=== PATIENT | female | born 1930 | race Caucasian/White ===

== ENCOUNTER → 2016-11-20 | Outpatient (CLI) | payer OTHER, BC ==
[~2016-11-20] MED LIST: ACET-1311 PO; ASPI-461 PO; BISA10SU3 PR; CITA20TA9 PO; CLR10 PO; CNT PO; DICL1GEL12 TOP; DOCU-94 PO; DOCU100C PO; ESCI10TA17 PO; FELO5TAB PO; FEXO3TAB PO; FNTTP25 TOP; HYDR-4079 PO; HYDR-5688 PO; LPR25 PO; LXT PO; MELA3TAB PO; MOML PO; MULT-506 PO; NUTR-977 PO; OXYB5TAB21 PO; POLY335019 PO; SODIENE PR; TPRSR/25 PO; TPRSR50 PO; ZNT150 PO
[2016-11-20 09:15] LABS: HEMATOCRIT 44.9 % (37-47); MEAN CELL VOLUME 93.3 fL (80-100); MEAN CORPUSCULAR HGB CONC 33.2 g/dl (32-36); MEAN PLATELET VOLUME 9.2 fL (7.4-10.4); PLATELET COUNT 231 K/uL (130-400); RED BLOOD COUNT 4.81 M/uL (4.2-5.4); WHITE BLOOD COUNT 7.99 K/uL (4.8-10.8)
[2016-11-20 09:23] LABS: BLOOD UREA NITROGEN 23 mg/dl (7-18); BUN/CREATININE RATIO 25.7 (10-20); CALCIUM 8.8 mg/dl (8.5-10.1); CARBON DIOXIDE 27 mmol/L (21-32); CHLORIDE 106 mmol/L (98-107); CREATININE 0.88 mg/dl (0.60-1.20); GLUCOSE 80 mg/dl (70-99); POTASSIUM 3.6 mmol/L (3.5-5.1); SODIUM 143 mmol/L (136-145)
== END ==
LOC: C.LABUPNIT 08:45
PROVIDERS: ATTEND Family Medicine
DX: I10 Essential (primary) hypertension (principal); M81.0 Age-related osteoporosis without current pathological fracture

== ENCOUNTER 2017-01-10 15:34 | Inpatient (IN) | payer OTHER, BC ==
[~2017-01-10] VITALS: Ht 157.5 cm; Wt 90.0 kg
[~2017-01-10 15:34] MED LIST changes: -ACET-1311 PO; -ASPI-461 PO; -BISA10SU3 PR; -CITA20TA9 PO; -CLR10 PO; -DICL1GEL12 TOP; -DOCU-94 PO; -FELO5TAB PO; -FEXO3TAB PO; -FNTTP25 TOP; -HYDR-5688 PO; -MELA3TAB PO; -MOML PO; -MULT-506 PO; -OXYB5TAB21 PO; -POLY335019 PO; -SODIENE PR; -TPRSR/25 PO; -TPRSR50 PO; -ZNT150 PO
[2017-01-10] MEDS ORDERED: SODIUM CHLORIDE 0.9% 500ML 500 ML IV STA (16:19)
[2017-01-10] MEDS ORDERED: ONDANSETRON INJ 2 MG/ML 2 ML VIAL IV STA (16:19)
--- NOTE | 2017-01-10 16:27 | EMERGENCY ROOM VISIT NOTE ---
History Report prepared by Garima: Gilson Fall Under the Supervision of: Dr. Itz Bryan D.O. First contact with patient: 16:12 Chief Complaint: ABDOMINAL PAIN Stated Complaint: AB PAIN Nursing Triage Summary: Pt arrives from [facility] by BLS for c/o RUQ abd pain. Tender upon palapation. Per staff ongoing for the last 1-2 days. Emesis x3 yesterday with episode of projectile vomiting after eating. Pt also reports vomiting after breakfast today. "I just don't have anything in there". Pt awake, alert and oriented. Hx of Dementia, Cholycystectomy History of Present Illness The patient is an 86 year old female who presents to the Emergency Room with complaints of persistent vomiting that started yesterday. The patient notes that she was vomiting after every meal yesterday and had another episode after breakfast today. Per nursing staff, the patient also complains of right upper quadrant discomfort. The HPI is limited due to dementia. Source of History: patient, [facility] notes History Limited By: dementia Onset: yesterday Position: abdomen Timing: other (persistent) Associated Symptoms: + abdominal pain (RUQ discomfort) Review of Systems The ROS is limited due to dementia. Past Medical & Surgical Medical Problems: (1) Abdominal pain (2) DJD (degenerative joint disease) (3) left hip prothesis Family History No pertinent family history Social History Smoking Status: Never Smoker Marital Status: Housing Status: assisted living Occupation Status: retired Current/Historical Medications Scheduled Aspirin (Aspirin), 81 MG PO DAILY Citalopram Hydrobromide (Celexa), 20 MG PO DAILY Diclofenac Sodium (Topical) (Voltaren 1% Top Gel), 4 GM TOP TID Docusate Sodium (Colace), 100 MG PO Q2D Felodipine (Plendil Er), 5 MG PO DAILY Fexofenadine HCl (Mucinex Allergy), 600 MG PO DAILY Melatonin (Melatonin), 3 MG PO HS Metoprolol Succinate (Metoprolol Succinate ER), 25 MG PO DAILY Oxybutynin Chloride (Ditropan Xl), 5 MG PO DAILY Polyethylene Glycol 3350 (Miralax), 17 GM PO DAILY Scheduled PRN Acetaminophen (Tylenol), 650 MG PO Q6H PRN for Pain or Fever Bisacodyl (Dulcolax), 1 SUPP [place] UD PRN for Constipation Hydrocodone/Acetaminophen 10MG/325MG ([place] 10MG/325MG), 1 TAB PO BID PRN for Pain Hydrocodone/Acetaminophen 5MG/325MG ([place] 5MG/325MG), 1 TAB PO Q6H PRN for Pain Magnesium Hydroxide (Milk Of Magnesia), 30 ML PO UD PRN for Constipation Sodium Phosphate/Biphosphate (Fleet Enema), 1 EA [place] UD PRN for Constipation Allergies Coded Allergies: Sulfamethoxazole w/Trimethoprim (Verified Allergy, Unknown, throat tightness, 08/16/15) Physical Exam Vital Signs Date Time Temp Pulse Resp B/P Pulse Ox O2 Delivery O2 Flow Rate FiO2 01/10/17 18:42 81 22 113/63 93 Room Air 01/10/17 16:52 76 22 116/70 92 Room Air 01/10/17 15:49 79 01/10/17 15:43 36.7 88 24 130/86 92 Room Air Physical Exam GENERAL: Patient is awake alert, mildly anxious appearing but comfortable. EYES: The conjunctivae are clear. The pupils were constricted and minimally reactive to light. EARS, NOSE, MOUTH AND THROAT: The nose is without any evidence of any deformity. Mucous membranes are dry bilaterally. tongue is midline NECK: The neck is nontender and supple. RESPIRATORY: Diminished at base bilaterally. Rales at both bases. CARDIOVASCULAR: Regular rate and rhythm noted there no murmurs rubs or gallops normal S1 normal S2 GASTROINTESTINAL: Moderately distended and diffusely tender. RUQ tenderness to palpation which is moderate. MUSCULOSKELETAL/EXTREMITIES: There is no evidence of gross deformity full range of motion is noted in the hips and shoulders SKIN: There is no obvious evidence of any rash. There are no petechiae, pallor or cyanosis noted. Pedal edema bilaterally. NEUROLOGIC: Patient is awake alert and oriented x3 Medical Decision & Procedures ER Provider Diagnostic Interpretation: Radiology results as stated below per my review and radiologist interpretation: CHEST ONE VIEW PORTABLE CLINICAL HISTORY: Abdominal pain. COMPARISON STUDY: Chest radiograph August 16, 2015. FINDINGS: Lung volumes are diminished. Multilevel vertebral augmentations are incidentally noted as well as chronic deformity of the right humeral head as well as the deformity of the left humeral head. Cardiomegaly is unchanged. There is no evidence of pulmonary edema. No consolidation is identified. The appearance of the chest is unchanged. IMPRESSION: No acute findings. No change in appearance of the chest. Electronically signed by: Huseyin James M.D. 01/10/2017 4:53 PM Dictated Date/Time: 01/10/2017 4:[address] OF THE ABDOMEN AND PELVIS WITHOUT CONTRAST CLINICAL HISTORY: Upper abdominal pain and vomiting. COMPARISON STUDY: CT of the abdomen and pelvis September 30, 2016. TECHNIQUE: Axial images of the abdomen and pelvis were obtained without IV contrast. Images were reviewed in the axial, sagittal, and coronal planes. FINDINGS: The heart is mildly enlarged. Evaluation of the abdomen and pelvis is suboptimal given the lack of IV and oral contrast. Mild dilatation of the common bile duct is unchanged since prior exam and likely due to cholecystectomy. Unenhanced images of liver, spleen, adrenal glands and kidneys are unremarkable with exception of several subcentimeter hyperdense and water attenuation renal lesions. These are suboptimally assessed on this unenhanced exam although likely reflect simple cysts and hyperdense cysts, as shown on prior contrast enhanced CT. Note is made of a 2 mm is within the lower pole of the left kidney. No ureteral calculi are identified. There is no hydronephrosis. There is a moderate amount of stool within the rectum. Images of the pelvis are compromised by streak artifact from a left hip arthroplasty. There are multilevel vertebral augmentations within the lumbar spine. No pneumatosis, free air or portal venous gas is present. The appendix is normal. IMPRESSION: 1. No acute process within the abdomen or pelvis on unenhanced exam. 2. Moderate amount of stool within the rectum. No bowel obstruction. 3. Punctate left renal calculus. No ureteral calculi or hydronephrosis. Electronically signed by: Huseyin James M.D. 01/10/2017 5:50 PM Dictated Date/Time: 01/10/2017 5:42 PM Laboratory Results 01/10/17 16:45 Red Blood Count 4.74, Mean Corpuscular Volume 92.2, Mean Corpuscular Hemoglobin 32.1, Mean Corpuscular Hemoglobin Concent 34.8, Mean Platelet Volume 9.1, Neutrophils (%) (Auto) 59.4, Lymphocytes (%) (Auto) 19.1, Monocytes (%) (Auto) 14.2, Eosinophils (%) (Auto) 6.8, Basophils (%) (Auto) 0.3, Neutrophils # (Auto ) 3.92, Lymphocytes # (Auto) 1.26, Monocytes # (Auto) 0.94, Eosinophils # (Auto ) 0.45, Basophils # (Auto) 0.02 01/10/17 16:45 Test 01/10/17 16:45 White Blood Count 6.60 K/uL (4.8-10.8) Red Blood Count 4.74 M/uL (4.2-5.4) Hemoglobin 15.2 g/dL (12.0-16.0) Hematocrit 43.7 % (37-47) Mean Corpuscular Volume 92.2 fL (80-100) Mean Corpuscular Hemoglobin 32.1 pg (25-34) Mean Corpuscular Hemoglobin Concent 34.8 g/dl (32-36) Platelet Count 239 K/uL (130-400) Mean Platelet Volume 9.1 fL (7.4-10.4) Neutrophils (%) (Auto) 59.4 % Lymphocytes (%) (Auto) 19.1 % Monocytes (%) (Auto) 14.2 % Eosinophils (%) (Auto) 6.8 % Basophils (%) (Auto) 0.3 % Neutrophils # (Auto) 3.92 K/uL (1.4-6.5) Lymphocytes # (Auto) 1.26 K/uL (1.2-3.4) Monocytes # (Auto) 0.94 K/uL (0.11-0.59) Eosinophils # (Auto) 0.45 K/uL (0-0.5) Basophils # (Auto) 0.02 K/uL (0-0.2) RDW Standard Deviation 46.2 fL (36.4-46.3) RDW Coefficient of Variation 13.6 % (11.5-14.5) Immature Granulocyte % (Auto) 0.2 % Immature Granulocyte # (Auto) 0.01 K/uL (0.00-0.02) Prothrombin Time 11.4 SECONDS (9.0-12.0) Prothromb Time International Ratio 1.1 (0.9-1.1) Activated Partial Thromboplast Time 27.8 SECONDS (21.0-31.0) Partial Thromboplastin Ratio 1.1 Anion Gap 7.0 mmol/L (3-11) Est Creatinine Clear Calc Drug Dose 50.6 ml/min Estimated GFR () 75.2 Estimated GFR (Non- 64.8 BUN/Creatinine Ratio 31.2 (10-20) Calcium Level 7.8 mg/dl (8.5-10.1) Total Bilirubin 0.6 mg/dl (0.2-1) Direct Bilirubin 0.1 mg/dl (0-0.2) Aspartate Amino Transf (AST/SGOT) 17 U/L (15-37) Alanine Aminotransferase (ALT/SGPT) 17 U/L (12-78) Alkaline Phosphatase 90 U/L (45-117) Total Creatine Kinase 57 U/L (26-192) Creatine Kinase MB 2.9 ng/ml (0.5-3.6) Creatine Kinase MB Ratio 5.1 (0-3.0) Troponin I 0.020 ng/ml (0-0.045) Total Protein 7.2 gm/dl (6.4-8.2) Albumin 3.0 gm/dl (3.4-5.0) Lipase 58 U/L (73-393) Laboratory results per my review. Medications Administered Medications (Trade) Dose Ordered Sig/Tiffanie Route Start Time Stop Time Status Last Admin Dose Admin Ondansetron HCl 4 mg 4 mg NOW STAT IV 01/10/17 16:19 01/10/17 16:21 DC 01/10/17 16:51 4 MG Sodium Chloride (Nss 500ml) 500 ml @ 999 mls/hr Q31M STAT IV 01/10/17 16:19 01/10/17 16:49 DC 01/10/17 16:50 999 MLS/HR ECG Indication: abdominal pain Rate (beats per minute): 90 Rhythm: sinus rhythm Findings: 1st degree AV block, other (no PVCs & diffuse t-wave flattening) Comparison ECG Date: no prior available Change: no significant change (when compared to EKG from August 20, 2015) ED Course 1611: The patient was evaluated in room C2. A complete history and physical examination were performed. 1618: Ordered NSS 500 ml @ 999 mls/hr IV, Zofran Inj 4 mg IV. 1814: At this time, I reevaluated the patient and discussed the test results with her daughter. Her daughter does not want the patient to go back to [facility] right now. 1904: At this time, I discussed the patient's case with Dr. Martinez - Hospitalist [facility] and he agreed to accept the patient for further evaluation. Medical Decision Differential diagnosis: Etiologies such as gastroenteritis, food borne illness, infections, appendicitis , diverticulitis, inflammatory bowel disease, obstruction, GI bleed, biliary pathology, as well as others were entertained. Nursing notes reviewed. Additional history is obtained from the patient's daughter. The patient is an 86-year-old female who presented to the emergency department for an evaluation of nausea and vomiting. The patient has had chronic right upper quadrant abdominal pain which is been ongoing for quite some time. No definite cause is been found. She presented today from the [facility] because of ongoing nausea and vomiting and the fear that she may be dehydrated. The patient was treated with IV fluids and IV antiemetics in the emergency department. On subsequent reevaluation she was feeling much better. I discussed her laboratory and radiographic studies with her and her daughter. Her daughter was concerned because of her ongoing symptoms and asked me to discuss this case with the on-call [facility] hospitalist group. They have agreed to evaluate the patient in the emergency department for further management and disposition. Consults Time Called: [id number] Consulting Physician: Dr. Martinez - Kyle [facility] [place] Returned Call: 1904 At this time, I discussed the patient's case with Dr. Martinez and he agreed to accept the patient for further evaluation. Impression Primary Impression: Nausea Additional Impressions: Vomiting RUQ abdominal pain Scribe Attestation The scribe's documentation has been prepared under my direction and personally reviewed by me in its entirety. I confirm that the note above accurately reflects all work, treatment, procedures, and medical decision making performed by me. Departure Information Dispostion Being Evaluated By Hospitalist Referrals Bennie Rust (PCP) Problem Qualifiers Additional Impressions: Vomiting Vomiting type: unspecified Vomiting Intractability: non-intractable Nausea presence: with nausea Qualified Codes: R11.2 - Nausea with vomiting, unspecified
[2017-01-10] MEDS ORDERED: CITA20TA9 PO (16:53)
[2017-01-10] MEDS ORDERED: DOCU-94 PO (16:53)
[2017-01-10] MEDS ORDERED: ASPI-461 PO (16:53)
--- NOTE | 2017-01-10 16:55 | DIAGNOSTIC IMAGING REPORT ---
CHEST ONE VIEW PORTABLE CLINICAL HISTORY: Abdominal pain. COMPARISON STUDY: Chest radiograph August 16, 2015. FINDINGS: Lung volumes are diminished. Multilevel vertebral augmentations are incidentally noted as well as chronic deformity of the right humeral head as well as the deformity of the left humeral head. Cardiomegaly is unchanged. There is no evidence of pulmonary edema. No consolidation is identified. The appearance of the chest is unchanged. IMPRESSION: No acute findings. No change in appearance of the chest. Electronically signed by: Huseyin James M.D. 01/10/2017 4:53 PM Dictated Date/Time: 01/10/2017 4:52 PM
[2017-01-10] MEDS ORDERED: POLY335019 PO (17:00)
[2017-01-10] MEDS ORDERED: MELA3TAB PO (17:00)
[2017-01-10] MEDS ORDERED: OXYB5TAB21 PO (17:00)
[2017-01-10] MEDS ORDERED: TPRSR/25 PO (17:00)
[2017-01-10] MEDS ORDERED: FELO5TAB PO (17:00)
[2017-01-10 17:02] LABS: BASO % 0.3 %; BASO ABS # 0.02 K/uL (0-0.2); COMPLETE YES; EOS % 6.8 %; HEMATOCRIT 43.7 % (37-47); IG% 0.2 %; LYMPH % 19.1 %; LYMPH ABS # 1.26 K/uL (1.2-3.4); MEAN CELL VOLUME 92.2 fL (80-100); MEAN CORPUSCULAR HEMOGLOBIN 32.1 pg (25-34); MEAN CORPUSCULAR HGB CONC 34.8 g/dl (32-36); MEAN PLATELET VOLUME 9.1 fL (7.4-10.4); MONO % 14.2 %; NEUT % 59.4 %; PLATELET COUNT 239 K/uL (130-400); RED BLOOD COUNT 4.74 M/uL (4.2-5.4)
[2017-01-10] MEDS ORDERED: FEXO3TAB PO (17:08)
[2017-01-10 17:10] LABS: INR 1.1 (0.9-1.1); PARTIAL THROMBOPLASTIN RATIO 1.1; PROTHROMBIN TIME (PATIENT) 11.4 SECONDS (9.0-12.0)
[2017-01-10] MEDS ORDERED: DICL1GEL12 TOP (17:17)
[2017-01-10 17:20] LABS: BUN/CREATININE RATIO 31.2 (10-20); CALCIUM 7.8 mg/dl (8.5-10.1); CREATININE 0.81 mg/dl (0.60-1.20); POTASSIUM 3.1 mmol/L (3.5-5.1)
[2017-01-10 17:25] LABS: CKMB/CK RATIO 5.1 (0-3.0)
[2017-01-10] MEDS ORDERED: SODIENE PR (17:27)
[2017-01-10] MEDS ORDERED: HYDR-5688 PO (17:27)
[2017-01-10] MEDS ORDERED: BISA10SU3 PR (17:27)
[2017-01-10] MEDS ORDERED: MOML PO (17:27)
[2017-01-10] MEDS ORDERED: ACET-1311 PO (17:27)
--- NOTE | 2017-01-10 17:51 | DIAGNOSTIC IMAGING REPORT ---
CT OF THE ABDOMEN AND PELVIS WITHOUT CONTRAST CLINICAL HISTORY: Upper abdominal pain and vomiting. COMPARISON STUDY: CT of the abdomen and pelvis September 30, 2016. TECHNIQUE: Axial images of the abdomen and pelvis were obtained without IV contrast. Images were reviewed in the axial, sagittal, and coronal planes. FINDINGS: The heart is mildly enlarged. Evaluation of the abdomen and pelvis is suboptimal given the lack of IV and oral contrast. Mild dilatation of the common bile duct is unchanged since prior exam and likely due to cholecystectomy. Unenhanced images of liver, spleen, adrenal glands and kidneys are unremarkable with exception of several subcentimeter hyperdense and water attenuation renal lesions. These are suboptimally assessed on this unenhanced exam although likely reflect simple cysts and hyperdense cysts, as shown on prior contrast enhanced CT. Note is made of a 2 mm is within the lower pole of the left kidney. No ureteral calculi are identified. There is no hydronephrosis. There is a moderate amount of stool within the rectum. Images of the pelvis are compromised by streak artifact from a left hip arthroplasty. There are multilevel vertebral augmentations within the lumbar spine. No pneumatosis, free air or portal venous gas is present. The appendix is normal. IMPRESSION: 1. No acute process within the abdomen or pelvis on unenhanced exam. 2. Moderate amount of stool within the rectum. No bowel obstruction. 3. Punctate left renal calculus. No ureteral calculi or hydronephrosis. Electronically signed by: Huseyin James M.D. 01/10/2017 5:50 PM Dictated Date/Time: 01/10/2017 5:42 PM
[2017-01-10] MEDS ORDERED: ALUMINUM/MAGNESIUM/SIMETH (MAALOX MAX) 30 ML UDC PO PRN (19:15)
[2017-01-10] MEDS ORDERED: POLYETHYLENE (MIRALAX) 17 GM PACK PO PRN ×2 (19:15→20:30)
[2017-01-10] MEDS ORDERED: MAGNESIUM HYDROXIDE SUSP 30 ML UDC PO PRN ×2 (19:15→20:30)
[2017-01-10] MEDS ORDERED: ONDANSETRON INJ 2 MG/ML 2 ML VIAL IV PRN (19:15)
[2017-01-10] MEDS ORDERED: ACETAMINOPHEN 325 MG TAB PO PRN ×2 (19:15→20:30)
[2017-01-10] MEDS ORDERED: IV FLUIDS COMPLETED PRN (19:45)
[2017-01-10] MEDS ORDERED: SOD PHOSPHATE/SOD BIPHOSPHATE ENEMA 132 ML BTL PR STA (20:23)
[2017-01-10] MEDS ORDERED: POLYETHYLENE (MIRALAX) 17 GM PACK PO ONE (20:23)
[2017-01-10] MEDS ORDERED: POTASSIUM CHLORIDE 10 MEQ TABCR PO STA (20:23)
[2017-01-10] MEDS ORDERED: HYDROCODONE/ACETAMOPHEN 5/325MG TAB PO PRN (20:30)
[2017-01-10] MEDS ORDERED: SOD PHOSPHATE/SOD BIPHOSPHATE ENEMA 132 ML BTL PR PRN (20:30)
[2017-01-10] MEDS ORDERED: BISACODYL 10 MG SUPP PR PRN (20:30)
[2017-01-10] MEDS ORDERED: HYDROCODONE/ACETAMI 10/325 TAB PO PRN (20:30)
[2017-01-10 20:45] VITALS: BP 104/70; PULSE 76; TEMP 37; Ht 157.5 cm; Wt 90.0 kg
[2017-01-10 20:57] VITALS: BP 104/70; PULSE 76; TEMP 37; O2SAT 92
[2017-01-10] MEDS ORDERED: NON-FORMULARY MEDICATION (Melatonin 3 MG) PO SCH (21:00)
[2017-01-10] MEDS ORDERED: FENTANYL PATCH REMOVE & WASTE SCH (21:29)
[2017-01-10] MEDS ORDERED: POTASSIUM CHLORIDE 10 MEQ TABCR PO ONE (21:30)
--- NOTE | 2017-01-10 22:19 | History and Physical ---
History & Physical Date & Time of Service: Jan 10, 2017 at 22:10 Chief Complaint: Abdominal Pain Primary Care Physician: Bennie Rust Past Medical/Surgical History Medical Problems: (1) DJD (degenerative joint disease) Status: Chronic (2) left hip prothesis Status: Chronic Family History No pertinent family history Social History Smoking Status: Never Smoker Marital Status: Occupational Status: retired Allergies Coded Allergies: Sulfamethoxazole w/Trimethoprim (Verified Allergy, Unknown, throat tightness, 08/16/15) Home Medications Scheduled Aspirin (Aspirin), 81 MG PO DAILY Citalopram Hydrobromide (Celexa), 20 MG PO DAILY Diclofenac Sodium (Topical) (Voltaren 1% Top Gel), 4 GM TOP TID Docusate Sodium (Colace), 100 MG PO Q2D Felodipine (Plendil Er), 5 MG PO DAILY Fexofenadine HCl (Mucinex Allergy), 600 MG PO DAILY Melatonin (Melatonin), 3 MG PO HS Metoprolol Succinate (Metoprolol Succinate ER), 25 MG PO DAILY Oxybutynin Chloride (Ditropan Xl), 5 MG PO DAILY Polyethylene Glycol 3350 (Miralax), 17 GM PO DAILY Scheduled PRN Acetaminophen (Tylenol), 650 MG PO Q6H PRN for Pain or Fever Bisacodyl (Dulcolax), 1 SUPP [place] UD PRN for Constipation Hydrocodone/Acetaminophen 10MG/325MG ([place] 10MG/325MG), 1 TAB PO BID PRN for Pain Hydrocodone/Acetaminophen 5MG/325MG ([place] 5MG/325MG), 1 TAB PO Q6H PRN for Pain Magnesium Hydroxide (Milk Of Magnesia), 30 ML PO UD PRN for Constipation Sodium Phosphate/Biphosphate (Fleet Enema), 1 EA [place] UD PRN for Constipation Physical Exam Vital Signs Date Time Temp Pulse Resp B/P Pulse Ox O2 Delivery O2 Flow Rate FiO2 01/10/17 20:57 37.0 76 19 104/70 92 Nasal Cannula 2.0 01/10/17 20:45 37.0 76 16 104/70 Nasal Cannula 2.0 92 01/10/17 20:16 85 20 122/87 96 Nasal Cannula 2.0 01/10/17 18:42 81 22 113/63 93 Room Air 01/10/17 16:52 76 22 116/70 92 Room Air 01/10/17 15:49 79 01/10/17 15:43 36.7 88 24 130/86 92 Room Air Diagnostics Laboratory Results Results Past 24 Hours Test 01/10/17 16:45 Range/Units White Blood Count 6.60 4.8-10.8 K/uL Red Blood Count 4.74 4.2-5.4 M/uL Hemoglobin 15.2 12.0-16.0 g/dL Hematocrit 43.7 37-47 % Mean Corpuscular Volume 92.2 80-100 fL Mean Corpuscular Hemoglobin 32.1 25-34 pg Mean Corpuscular Hemoglobin Concent 34.8 32-36 g/dl Platelet Count 239 130-400 K/uL Mean Platelet Volume 9.1 7.4-10.4 fL Neutrophils (%) (Auto) 59.4 % Lymphocytes (%) (Auto) 19.1 % Monocytes (%) (Auto) 14.2 % Eosinophils (%) (Auto) 6.8 % Basophils (%) (Auto) 0.3 % Neutrophils # (Auto) 3.92 1.4-6.5 K/uL Lymphocytes # (Auto) 1.26 1.2-3.4 K/uL Monocytes # (Auto) 0.94 0.11-0.59 K/uL Eosinophils # (Auto) 0.45 0-0.5 K/uL Basophils # (Auto) 0.02 0-0.2 K/uL RDW Standard Deviation 46.2 36.4-46.3 fL RDW Coefficient of Variation 13.6 11.5-14.5 % Immature Granulocyte % (Auto) 0.2 % Immature Granulocyte # (Auto) 0.01 0.00-0.02 K/uL Prothrombin Time 11.4 9.0-12.0 SECONDS Prothromb Time International Ratio 1.1 0.9-1.1 Activated Partial Thromboplast Time 27.8 21.0-31.0 SECONDS Partial Thromboplastin Ratio 1.1 Sodium Level 139 136-145 mmol/L Potassium Level 3.1 3.5-5.1 mmol/L Chloride Level 103 98-107 mmol/L Carbon Dioxide Level 29 21-32 mmol/L Anion Gap 7.0 3-11 mmol/L Blood Urea Nitrogen 25 7-18 mg/dl Creatinine 0.81 0.60-1.20 mg/dl Est Creatinine Clear Calc Drug Dose 50.6 ml/min Estimated GFR () 75.2 Estimated GFR (Non- 64.8 BUN/Creatinine Ratio 31.2 10-20 Random Glucose 103 70-99 mg/dl Calcium Level 7.8 8.5-10.1 mg/dl Total Bilirubin 0.6 0.2-1 mg/dl Direct Bilirubin 0.1 0-0.2 mg/dl Aspartate Amino Transf (AST/SGOT) 17 15-37 U/L Alanine Aminotransferase (ALT/SGPT) 17 12-78 U/L Alkaline Phosphatase 90 45-117 U/L Total Creatine Kinase 57 26-192 U/L Creatine Kinase MB 2.9 0.5-3.6 ng/ml Creatine Kinase MB Ratio 5.1 0-3.0 Troponin I 0.020 0-0.045 ng/ml Total Protein 7.2 6.4-8.2 gm/dl Albumin 3.0 3.4-5.0 gm/dl Lipase 58 73-393 U/L Impression Assessment and Plan admit #[id number] Advanced Directives Existing Living Will: No Existing Power of Senior Enlisted Advisor: No VTE Prophylaxis VTE Risk Assessment Done? Y/N: Yes Risk Level: Moderate
[2017-01-10] MEDS: POLYETHYLENE (MIRALAX) 17 GM PACK PO SCH (22:27)
[2017-01-10] MEDS: DICLOFENAC SOD 1% GEL 100 GM TUBE EXT SCH (22:32)
[2017-01-10] MEDS: SENNA 8.6 MG TAB PO SCH (22:33)
[2017-01-10] MEDS: ENOXAPARIN 40 MG/0.4 ML SYR SQ SCH (22:50)
[2017-01-10] MEDS: FENTANYL 25 MCG/HR TDSY TD SCH (22:50)
[2017-01-10 23:09] VITALS: BP 125/81; PULSE 73; TEMP 36.5; O2SAT 94
--- NOTE | 2017-01-10 23:46 | HISTORY & PHYSICAL EXAMINATION ---
DATE OF ADMISSION: 01/10/2017 CHIEF COMPLAINT: Abdominal pain and vomiting. HISTORY OF PRESENT ILLNESS: The patient is an 86-year-old female well known to me from [facility] who presents after 2 days of vomiting, some of which was projectile. She has been unable to eat or drink very well over the last 2 days. She notes that her abdomen started getting more distended. She has had less and less bowel movements and then she started vomiting and she has not really been able to take anything p.o. since. She has not had diarrhea, in fact she has not really had much of any bowel movements and she had no preceding fevers, chills, or sweats. REVIEW OF SYSTEMS: Otherwise entirely negative except for as above. PAST MEDICAL HISTORY: Includes hypertension, anxiety, depression, overactive bladder, venous insufficiency, osteoarthritis, osteoporosis, unspecified congestive heart failure and chronic constipation appearing due to her pain medications. PAST SURGICAL HISTORY: Includes left total hip arthroplasty, prior knee fracture. SOCIAL HISTORY: No tobacco, no alcohol. She lives at [facility]. ALLERGIES: BACTRIM. FAMILY HISTORY: None of note. MEDICATIONS: Her current meds are Tylenol 650 q. 6 p.r.n., aspirin 81 mg daily, Dulcolax rectally p.r.n. constipation, Celexa 20 mg daily, Voltaren gel topical t.i.d., Colace 100 mg every other day, Plendil 5 mg daily, Mucinex 600 mg daily, Cosby 10/325 b.i.d. p.r.n. and 5/325 q. 6 p.r.n., milk of magnesia 30 mL p.r.n. constipation, melatonin 3 mg at bedtime, metoprolol 25 mg daily, Ditropan XL 5 mg daily, MiraLax 17 g daily which I believe she frequently refuses, Fleet Enema p.r.n. refractory constipation. PHYSICAL EXAMINATION: VITAL SIGNS: Temperature 36.7, pulse 88, respiratory rate 24, blood pressure 130/86, 92% on room air. GENERAL: She is awake, alert, oriented x3, pleasant and in no acute distress. HEENT: Normocephalic, atraumatic. Mucous membranes are moist. She is quite hard of hearing but if you shout at her, she is able to understand and converse fairly well. CARDIOVASCULAR: Regular without rubs, murmurs, or gallops. LUNGS: Clear to auscultation bilaterally. No rales, rhonchi, or wheezes with good effort. ABDOMEN: Soft, moderately distended, slightly tympanitic in her upper abdomen and more firm but not guarding, rebound or rigidity in her lower abdomen, mildly tender throughout. EXTREMITIES: Without cyanosis, clubbing or edema. NEUROLOGIC: Shows cranial nerves II-XII to be grossly intact. Gross motor and sensory are intact with the exception of hardness of hearing as above noted. MUSCULOSKELETAL: Shows diffuse arthritic changes, but no other gross lesions. MENTAL STATE: Shows good recent and remote recall. Normal mood and affect. Fair judgment and insight. LABS AND DIAGNOSTICS: CBC shows a white count of 6.6 with a hemoglobin 15.2, platelets 239. Complete metabolic panel with sodium 139, potassium 3.1, chloride 103, CO2 29, BUN 25, creatinine 0.81, calcium 7.8, glucose 103, total bili 0.6 with a direct of 0.1, AST 17, ALT 17, alk phos 90, CK total 57 with an MB of 2.9. Troponin of 0.020. Total protein 7.2, albumin 3, lipase 58. PT of 11.4, PTT 27.8. Chest x-ray shows lung volumes diminished, multilevel vertebral augmentations noted as well as chronic deformity of the right humeral head and left humeral head, cardiomegaly unchanged from about a year and half ago. No evidence of pulmonary edema, no consolidation. CT abdomen and pelvis shows heart mildly enlarged. Evaluation of abdomen and pelvis suboptimal due to lack of IV and oral contrast, mild dilation of common bile duct, unchanged since prior exam and likely due to cholecystectomy. Images of liver, spleen, adrenal glands and kidneys are unremarkable with the exception of several subcentimeter hyperdense water attenuation renal lesions, suboptimally assessed on this exam, although likely reflect simple and hyperdense cysts as seen on prior contrast CT. There is a 2 mm lower pole of left kidney. No ureteral calculi. Hydronephrosis is not present. Moderate amount of stool in the rectum. Images of the pelvis are compromised by streak artifact from a left hip arthroplasty, multilevel vertebral augmentations in the lumbar spine, no pneumatosis, free air or portal venous gas. To my review, I definitely see the stool in the rectum. It appears to go up to about the sigmoid colon at about the splenic flexure and while it is certainly not an obstruction or severe degree of gaseous distention prior to the stool, there does appear to be a reasonable amount of bowel gas and distention across the transverse colon. ASSESSMENT AND PLAN: 1. Nausea and vomiting. My initial differential would have been viral versus constipation related, knowing her history and knowing it is prevalent in the community. Given that she is not really showing any signs or symptoms of a viral illness and she does show a physical exam and CT quite consistent with constipation, I suspect this is the etiology of her nausea and vomiting. 2. Constipation. This is chronic, related to her pain meds. I have been working with her throughout the last year to try to refine her pain meds and bowel regimen. The first that I saw her in this respect was March 18. In general, she refuses any regimen she does not like. She tries to essentially dictate her own care and in spite of my best efforts, she continues to only want to take p.r.n. meds for pain without any basal pain regimen and generally does not allow us to keep on top of a bowel regimen. At this point in time it appears we will need to proceed with an enema to alleviate the lower colon fecal stasis and then proceed with MiraLax to try to keep her bowels moving as well as senna, probably with senna 17.4 at bedtime, MiraLax probably b.i.d. with an additional dose or 2 doses throughout the day p.r.n. refractory constipation and I suspect once we get her bowels moving, she will be able to eat and drink and her nausea and vomiting will resolve. 3. Chronic pain. This is mostly a diffuse degenerative joint disease related osteoarthritis pain. With her age and hypertension, certainly I harbor some serious concerns about a chronic NSAID regimen causing stomach, renal or vascular issues. Tylenol is not doing well enough, nor is Voltaren gel topically. So I do agree with her that given that she really cannot get up and walk without a degree of pain control, that narcotic regimen is probably the least dangerous, however I discussed with her that she needs to allow me to try to revamp her pain regimen to more of a basal bolus fashion. Hopefully, that will affect her better pain control but also without the on and off type phenomenon, hopefully it will allow the constipation to be easier to manage as well. In the past, she has refused this, she generally talks over and makes assumptions on what we are going to do. She did this a little bit again today, noting that she did not want me to stop her pain medicines whenever I said that I had no such intentions. She also did not want the fentanyl patch, noting that she was afraid that it would be too much pain medicine for her. I discussed the case in detail with her and her daughter and at this point in time, we will reduce her breakthrough meds to Cosby 10/325 t.i.d. p.r.n., add a fentanyl patch 25 mcg change q. 72 hours and titrate the fentanyl patch to where she seems to have adequate pain control with t.i.d. or less pain meds. 4. Essential hypertension. Continue her felodipine and metoprolol. 5. Hypoxia. This is probably atelectasis related to her abdominal pain and distention. Clearing her constipation should help. We will also add incentive spirometer. 6. Hypocalcemia and vitamin D insufficiency, replace D. This should be ongoing after she is discharged. 7. Deep venous thrombosis prophylaxis, Lovenox.
[2017-01-11] MEDS: CHECK FENTANYL PATCH PLACEMENT SCH ×3 (00:58→15:23)
[2017-01-11 08:06] VITALS: BP 130/80; PULSE 72; TEMP 36.7; O2SAT 92
[2017-01-11] MEDS: POLYETHYLENE (MIRALAX) 17 GM PACK PO SCH ×2 (08:37→21:00)
[2017-01-11] MEDS: CITALOPRAM 20 MG TAB PO SCH (08:38)
[2017-01-11] MEDS: OXYBUTYNIN CHLORIDE 5 MG TABCR PO SCH (08:38)
[2017-01-11] MEDS: DICLOFENAC SOD 1% GEL 100 GM TUBE EXT SCH ×3 (08:38→21:14)
[2017-01-11] MEDS: GUAIFENESIN 600 MG TABCR PO SCH (08:39)
[2017-01-11] MEDS: FELODIPINE 5 MG TABCR PO SCH (08:39)
[2017-01-11] MEDS: ASPIRIN 81 MG ECTAB PO SCH (08:39)
[2017-01-11 08:41] VITALS: BP 138/91; PULSE 77
[2017-01-11] MEDS: METOPROLOL SUCC 25MG EXT REL TAB PO SCH (08:43)
[2017-01-11] MEDS ORDERED: HYDROCODONE/ACETAMI 10/325 TAB PO PRN (09:00)
[2017-01-11 09:04] LABS: BUN/CREATININE RATIO 34.9 (10-20); CALCIUM 7.7 mg/dl (8.5-10.1); CREATININE 0.81 mg/dl (0.60-1.20); POTASSIUM 3.4 mmol/L (3.5-5.1)
[2017-01-11] MEDS: CHOLECALCIFEROL 1000 INTER.UNIT TAB PO SCH (09:16)
[2017-01-11 09:43] VITALS: BP 146/90; PULSE 89
--- NOTE | 2017-01-11 10:38 | Progress Note ---
Subjective Date of Service: Jan 11, 2017. Subjective Pt evaluation today including: conversation w/ patient, physical exam, chart review, lab review, review of studies, review of inpatient medication list Patient says she has a pain patch on. Take metamucil for her constipation. No chest pain. Nausea is better. SHe did have breakfast and tolerated it well. She does report to feeling bloated She reports some weakness and feeling winded with some exertion but does not have oxygen at home. Problem List Medical Problems: (1) Nausea Status: Acute (2) RUQ abdominal pain Status: Acute (3) Vomiting Status: Acute Review of Systems All Other Systems: Reviewed and Negative Medications Acetaminophen (Tylenol Tab) 650 mg Q4H PRN PO; Start 01/10/17 at 19:15; Stop 02/09/17 at 19:14 Acetaminophen/ Hydrocodone Bitart ([place] 10/325 Tab) 1 tab TID PRN PO; Start at 09:00; Stop 01/25/17 at 08:59 Al Hydrox/Mg Hydrox/Simethicone (Maalox Max Susp) 15 ml Q4H PRN PO; Start 01/10 at 19:15; Stop 02/09/17 at 19:14 Aspirin (Ecotrin Tab) 81 mg DAILY PO Last administered on 01/11/17 08:39; Admin Dose 81 MG; Start 01/11/17 at 09:00; Stop 02/10/17 at 08:59 Bisacodyl (Dulcolax Supp) 10 mg DAILY PRN SD; Start 01/10/17 at 20:30; Stop at 20:29 Cholecalciferol 2000 inter.unit 2,000 inter.unit QAM PO Last administered on 09:16; Admin Dose 2,000 INTER.UNIT; Start 01/11/17 at 09:00; Stop at 08:59 Citalopram Hydrobromide (celeXA TAB) 20 mg DAILY PO Last administered on 08:38; Admin Dose 20 MG; Start 01/11/17 at 09:00; Stop 02/10/17 at 08:59 Diclofenac Sodium (Voltaren 1% Top Gel) 1 appln TID EXT Last administered on 08:38; Admin Dose 1 APPLN; Start 01/10/17 at 21:00; Stop 02/09/17 at 20: 59 Docusate Sodium (coLACE CAP) 100 mg Q2D@2100 PO; Start 01/11/17 at 21:00; Stop 02/10/17 at 20:59 Enoxaparin Sodium (Lovenox Inj) 40 mg Q24H SQ Last administered on 01/10/17 22: 50; Admin Dose 40 MG; Start 01/10/17 at 21:00; Stop 02/09/17 at 20:59 Felodipine (Plendil Tabcr) 5 mg DAILY PO Last administered on 01/11/17 08:39; Admin Dose 5 MG; Start 01/11/17 at 09:00; Stop 02/10/17 at 08:59 Fentanyl (Duragesic Patch) 25 mcg Q72H TD Last administered on 01/10/17 22:50; Admin Dose 25 MCG; Start 01/10/17 at 21:30; Stop 01/24/17 at 21:29 Guaifenesin (Mucinex Contr Rel Tab) 600 mg DAILY PO Last administered on 08:39; Admin Dose 600 MG; Start 01/11/17 at 09:00; Stop 02/10/17 at 08:59 Magnesium Hydroxide (Milk Of Magnesia Susp) 30 ml Q6H PRN PO; Start 01/10/17 at 19:15; Stop 02/09/17 at 19:14 Metoprolol Succinate (Toprol Xl Tab) 25 mg DAILY PO Last administered on 08:43; Admin Dose 25 MG; Start 01/11/17 at 09:00; Stop 02/10/17 at 08:59 Miscellaneous (Fentanyl Patch Remove & Waste) 1 ea Q3D@2129 N/A; Start 01/10/17 at 21:29; Stop 02/09/17 at 21:28 Miscellaneous (Iv Fluids Completed) 1 ea PRN PRN N/A; Start 01/10/17 at 19:45; Stop 01/10/18 at 19:44 Miscellaneous Information (Check Fentanyl Patch Placement) 1 ea QS N/A Last administered on 01/11/17 08:00; Admin Dose 1 EA; Start 01/11/17 at 00:00; Stop 02/10/17 at 00:00 Ondansetron HCl (Zofran Inj) 4 mg Q6H PRN IV; Start 01/10/17 at 19:15; Stop at 19:14 Oxybutynin Chloride (Ditropan-Xl Tab) 5 mg DAILY PO Last administered on 08:38; Admin Dose 5 MG; Start 01/11/17 at 09:00; Stop 02/10/17 at 08:59 Polyethylene (Miralax Powder Packet) 17 gm BID PO Last administered on 08:37; Admin Dose 17 GM; Start 01/10/17 at 21:00; Stop 02/09/17 at 20:59 Polyethylene (Miralax Powder Packet) 17 gm DAILY PRN PO; Start 01/10/17 at 20: 30; Stop 02/09/17 at 20:29 Potassium Chloride/Prmx (Kcl 20 Meq / Wtr/Premixed Water) 100 ml @ 50 mls/hr NOW STAT IV; Start 01/11/17 at 10:15; Stop 01/11/17 at 12:14; Status UNV Senna (Senokot Tab) 17.2 mg HS PO Last administered on 01/10/17 22:33; Admin Dose 17.2 MG; Start 01/10/17 at 21:00; Stop 02/09/17 at 20:59 Sodium Biphosphate/ Sodium Phosphate (Fleet Enema) 132 ml DAILY PRN SD; Start 01/10/17 at 20:30; Stop 02/09/17 at 20:29 Objective Vital Signs Date Time Temp Pulse Resp B/P Pulse Ox O2 Delivery O2 Flow Rate FiO2 01/11/17 09:43 89 146/90 01/11/17 08:41 77 138/91 01/11/17 08:06 36.7 72 19 130/80 92 Nasal Cannula 2.0 01/11/17 07:30 Nasal Cannula 2.0 01/11/17 00:50 Nasal Cannula 2.0 01/10/17 23:09 36.5 73 18 125/81 94 Nasal Cannula 2.0 01/10/17 20:57 37.0 76 19 104/70 92 Nasal Cannula 2.0 01/10/17 20:45 37.0 76 16 104/70 Nasal Cannula 2.0 92 01/10/17 20:16 85 20 122/87 96 Nasal Cannula 2.0 01/10/17 18:42 81 22 113/63 93 Room Air 01/10/17 16:52 76 22 116/70 92 Room Air 01/10/17 15:49 79 01/10/17 15:43 36.7 88 24 130/86 92 Room Air Physical Exam Comments: nad, aox3, hard of hearing but speech fluent anicteric sclerae, eomi, perrl s1 s2 rrr, no m/r/g ctab no w/r/r abd soft obese, +BS, nt no LE edema cn 2-12 grossly intact without facial drooping Laboratory Results Last 24 Hours Test 01/10/17 16:45 01/11/17 07:45 White Blood Count 6.60 K/uL Red Blood Count 4.74 M/uL Hemoglobin 15.2 g/dL Hematocrit 43.7 % Mean Corpuscular Volume 92.2 fL Mean Corpuscular Hemoglobin 32.1 pg Mean Corpuscular Hemoglobin Concent 34.8 g/dl Platelet Count 239 K/uL Mean Platelet Volume 9.1 fL Neutrophils (%) (Auto) 59.4 % Lymphocytes (%) (Auto) 19.1 % Monocytes (%) (Auto) 14.2 % Eosinophils (%) (Auto) 6.8 % Basophils (%) (Auto) 0.3 % Neutrophils # (Auto) 3.92 K/uL Lymphocytes # (Auto) 1.26 K/uL Monocytes # (Auto) 0.94 K/uL Eosinophils # (Auto) 0.45 K/uL Basophils # (Auto) 0.02 K/uL RDW Standard Deviation 46.2 fL RDW Coefficient of Variation 13.6 % Immature Granulocyte % (Auto) 0.2 % Immature Granulocyte # (Auto) 0.01 K/uL Prothrombin Time 11.4 SECONDS Prothromb Time International Ratio 1.1 Activated Partial Thromboplast Time 27.8 SECONDS Partial Thromboplastin Ratio 1.1 Sodium Level 139 mmol/L 142 mmol/L Potassium Level 3.1 mmol/L 3.4 mmol/L Chloride Level 103 mmol/L 106 mmol/L Carbon Dioxide Level 29 mmol/L 31 mmol/L Anion Gap 7.0 mmol/L 5.0 mmol/L Blood Urea Nitrogen 25 mg/dl 28 mg/dl Creatinine 0.81 mg/dl 0.81 mg/dl Est Creatinine Clear Calc Drug Dose 50.6 ml/min 50.1 ml/min Estimated GFR () 75.2 75.2 Estimated GFR (Non- 64.8 64.8 BUN/Creatinine Ratio 31.2 34.9 Random Glucose 103 mg/dl 89 mg/dl Calcium Level 7.8 mg/dl 7.7 mg/dl Total Bilirubin 0.6 mg/dl Direct Bilirubin 0.1 mg/dl Aspartate Amino Transf (AST/SGOT) 17 U/L Alanine Aminotransferase (ALT/SGPT) 17 U/L Alkaline Phosphatase 90 U/L Total Creatine Kinase 57 U/L Creatine Kinase MB 2.9 ng/ml Creatine Kinase MB Ratio 5.1 Troponin I 0.020 ng/ml Total Protein 7.2 gm/dl Albumin 3.0 gm/dl Lipase 58 U/L Assessment and Plan 1. Nausea/vomiting - CT abd reviewed, no obstruction - likely constipation from chronic pain meds - bowel regimen ordered 2. Generalized weakness - likely physical deconditioning - PT/OT evaluation 3. htn - BP acceptable on felodipine and metoprolol 4. hypokalemia - likely from K depletion - now tolerating diet - will replete 20 meq IV now 5. dvt pxx with lovenox
[2017-01-11] MEDS: POTASSIUM CHLR 10 MEQ / WTR 10 MEQ in PREMIXED WATER 100 ML IV SCH ×2 (10:40→12:21)
[2017-01-11 10:42] VITALS: O2SAT 92
--- NOTE | 2017-01-11 14:34 | DIAGNOSTIC IMAGING REPORT ---
TWO VIEW CHEST CLINICAL HISTORY: Dyspnea and wheezing. FINDINGS: AP and lateral chest radiographs are compared to study dated 01/10/2017. The examination is degraded by large body habitus and motion artifact. The heart appears enlarged and there is atherosclerotic calcification of the thoracic aorta. The pulmonary vasculature is noncongested. There are low lung volumes with bibasilar atelectasis. No airspace consolidation or pleural effusion is identified. There is no pneumothorax. The skeletal structures are osteopenic. Degenerative change and hyperkyphosis are noted in the thoracic spine. There are numerous spinal compression deformities with evidence of previous vertebroplasty in the lower thoracic and upper lumbar region. Advanced arthritic change and deformity is seen in the shoulders. IMPRESSION: Low lung volumes with no acute cardiopulmonary abnormality. Electronically signed by: Femi Deng M.D. 01/11/2017 2:33 PM Dictated Date/Time: 01/11/2017 2:31 PM
[2017-01-11 15:17] VITALS: BP 126/77; PULSE 70; TEMP 36.8; O2SAT 95
[2017-01-11] MEDS ORDERED: ALBUTEROL 0.083% NEBU SOLN 3 ML VIAL INH PRN (17:45)
[2017-01-11 19:50] LABS: URINE APPEARANCE CLEAR (CLEAR); URINE BILIRUBIN NEG (NEG); URINE COLOR YELLOW; URINE EPITHELIAL CELL AUTO 20-30 /lpf (0-5); URINE NITRITE NEG (NEG); URINE PH 6.5 (4.5-7.5); URINE SPECIFIC GRAVITY 1.015 (1.000-1.030); UROBILINOGEN POS (NEG)
[2017-01-11 19:54] LABS: MANUAL MICROSCOPIC REQUIRED? NO; REVIEW REQ? NO
[2017-01-11] MEDS ORDERED: DOCUSATE SODIUM 100 MG CAP PO SCH (21:00)
[2017-01-11] MEDS: SENNA 8.6 MG TAB PO SCH (21:00)
[2017-01-11] MEDS: ENOXAPARIN 40 MG/0.4 ML SYR SQ SCH (21:19)
[2017-01-11 23:14] VITALS: BP 134/86; PULSE 77; TEMP 36.7; O2SAT 96
[2017-01-12 07:07] VITALS: BP 149/84; PULSE 73; TEMP 36.6; O2SAT 96
[2017-01-12] MEDS: CHECK FENTANYL PATCH PLACEMENT SCH ×3 (08:14→16:00)
[2017-01-12] MEDS: METOPROLOL SUCC 25MG EXT REL TAB PO SCH (08:51)
[2017-01-12] MEDS: CITALOPRAM 20 MG TAB PO SCH (08:51)
[2017-01-12] MEDS: ASPIRIN 81 MG ECTAB PO SCH (08:51)
[2017-01-12] MEDS: DICLOFENAC SOD 1% GEL 100 GM TUBE EXT SCH ×3 (08:51→20:41)
[2017-01-12] MEDS: GUAIFENESIN 600 MG TABCR PO SCH (08:51)
[2017-01-12] MEDS: POLYETHYLENE (MIRALAX) 17 GM PACK PO SCH ×2 (08:52→20:39)
[2017-01-12] MEDS: FELODIPINE 5 MG TABCR PO SCH (08:52)
[2017-01-12] MEDS: OXYBUTYNIN CHLORIDE 5 MG TABCR PO SCH (08:52)
[2017-01-12] MEDS: CHOLECALCIFEROL 1000 INTER.UNIT TAB PO SCH (08:52)
--- NOTE | 2017-01-12 09:17 | Progress Note ---
Subjective Date of Service: Jan 12, 2017. Subjective Pt evaluation today including: conversation w/ patient, physical exam, chart review, review of studies, review of inpatient medication list tolerating food. still c/o abd is firm. several small BM yesterday. no chest pain, no sob. Problem List Medical Problems: (1) Nausea Status: Acute (2) RUQ abdominal pain Status: Acute (3) Vomiting Status: Acute Review of Systems All Other Systems: Reviewed and Negative Medications Acetaminophen (Tylenol Tab) 650 mg Q4H PRN PO Last administered on 01/12/17 08:55; Admin Dose 650 MG; Start 01/10/17 at 19:15; Stop 02/09/17 at 19:14 Acetaminophen/ Hydrocodone Bitart ([place] 10/325 Tab) 1 tab TID PRN PO; Start at 09:00; Stop 01/25/17 at 08:59 Al Hydrox/Mg Hydrox/Simethicone (Maalox Max Susp) 15 ml Q4H PRN PO; Start 01/10 at 19:15; Stop 02/09/17 at 19:14 Albuterol Sulfate (Ventolin 0.083% 2.5MG/3ML Neb) 2.5 mg Q6R PRN INH; Start at 17:45; Stop 02/10/17 at 17:44 Aspirin (Ecotrin Tab) 81 mg DAILY PO Last administered on 01/12/17 08:51; Admin Dose 81 MG; Start 01/11/17 at 09:00; Stop 02/10/17 at 08:59 Bisacodyl (Dulcolax Supp) 10 mg DAILY PRN PA; Start 01/10/17 at 20:30; Stop at 20:29 Cholecalciferol (Vitamin D Tab) 2,000 inter.unit QAM PO Last administered on 08:52; Admin Dose 2,000 INTER.UNIT; Start 01/11/17 at 09:00; Stop at 08:59 Citalopram Hydrobromide (celeXA TAB) 20 mg DAILY PO Last administered on 08:51; Admin Dose 20 MG; Start 01/11/17 at 09:00; Stop 02/10/17 at 08:59 Diclofenac Sodium (Voltaren 1% Top Gel) 1 appln TID EXT Last administered on 08:51; Admin Dose 1 APPLN; Start 01/10/17 at 21:00; Stop 02/09/17 at 20: 59 Docusate Sodium (coLACE CAP) 100 mg Q2D@2100 PO; Start 01/11/17 at 21:00; Stop 02/10/17 at 20:59 Enoxaparin Sodium (Lovenox Inj) 40 mg Q24H SQ Last administered on 01/11/17 21: 19; Admin Dose 40 MG; Start 01/10/17 at 21:00; Stop 02/09/17 at 20:59 Felodipine (Plendil Tabcr) 5 mg DAILY PO Last administered on 01/12/17 08:52; Admin Dose 5 MG; Start 01/11/17 at 09:00; Stop 02/10/17 at 08:59 Fentanyl (Duragesic Patch) 25 mcg Q72H TD Last administered on 01/10/17 22:50; Admin Dose 25 MCG; Start 01/10/17 at 21:30; Stop 01/24/17 at 21:29 Guaifenesin (Mucinex Contr Rel Tab) 600 mg DAILY PO Last administered on 08:51; Admin Dose 600 MG; Start 01/11/17 at 09:00; Stop 02/10/17 at 08:59 Magnesium Hydroxide (Milk Of Magnesia Susp) 30 ml Q6H PRN PO; Start 01/10/17 at 19:15; Stop 02/09/17 at 19:14 Metoprolol Succinate (Toprol Xl Tab) 25 mg DAILY PO Last administered on 08:51; Admin Dose 25 MG; Start 01/11/17 at 09:00; Stop 02/10/17 at 08:59 Miscellaneous (Fentanyl Patch Remove & Waste) 1 ea Q3D@2129 N/A; Start 01/10/17 at 21:29; Stop 02/09/17 at 21:28 Miscellaneous (Iv Fluids Completed) 1 ea PRN PRN N/A; Start 01/10/17 at 19:45; Stop 01/10/18 at 19:44 Miscellaneous Information (Check Fentanyl Patch Placement) 1 ea QS N/A Last administered on 01/12/17 08:14; Admin Dose 1 EA; Start 01/11/17 at 00:00; Stop 02/10/17 at 00:00 Ondansetron HCl (Zofran Inj) 4 mg Q6H PRN IV; Start 01/10/17 at 19:15; Stop at 19:14 Oxybutynin Chloride (Ditropan-Xl Tab) 5 mg DAILY PO Last administered on 08:52; Admin Dose 5 MG; Start 01/11/17 at 09:00; Stop 02/10/17 at 08:59 Polyethylene (Miralax Powder Packet) 17 gm BID PO Last administered on 08:52; Admin Dose 17 GM; Start 01/10/17 at 21:00; Stop 02/09/17 at 20:59 Polyethylene (Miralax Powder Packet) 17 gm DAILY PRN PO; Start 01/10/17 at 20: 30; Stop 02/09/17 at 20:29 Senna (Senokot Tab) 17.2 mg HS PO Last administered on 01/10/17 22:33; Admin Dose 17.2 MG; Start 01/10/17 at 21:00; Stop 02/09/17 at 20:59 Sodium Biphosphate/ Sodium Phosphate (Fleet Enema) 132 ml DAILY PRN PA; Start 01/10/17 at 20:30; Stop 02/09/17 at 20:29 Objective Vital Signs Date Time Temp Pulse Resp B/P Pulse Ox O2 Delivery O2 Flow Rate FiO2 01/12/17 07:07 36.6 73 16 149/84 96 2.0 01/11/17 23:50 Nasal Cannula 2.0 01/11/17 23:14 36.7 77 17 134/86 96 Nasal Cannula 2.0 01/11/17 15:17 36.8 70 17 126/77 95 Nasal Cannula 2.0 01/11/17 15:15 Nasal Cannula 2.0 01/11/17 10:42 92 Nasal Cannula 2.0 01/11/17 09:43 89 146/90 Physical Exam Comments: nad, aox3, fluent speech but focused on pain medication s1 s2 rrr, no murmurs appreciated rales at bases with diminished breath sounds, no wheezing abd soft, nt, distended, +BS no cva tenderness no LE edema Laboratory Results Last 24 Hours Test 01/11/17 19:35 Urine Color YELLOW Urine Appearance CLEAR Urine pH 6.5 Urine Specific [place] 1.015 Urine Protein NEG Urine Glucose (UA) NEG Urine Ketones NEG Urine Occult Blood NEG Urine Nitrite NEG Urine Bilirubin NEG Urine Urobilinogen POS Urine Leukocyte Esterase TRACE Urine WBC (Auto) 1-5 /hpf Urine RBC (Auto) 0-4 /hpf Urine Hyaline Casts (Auto) 0 /lpf Urine Epithelial Cells (Auto) 20-30 /lpf Urine Bacteria (Auto) NEG Assessment and Plan 1. Nausea/vomiting - CT abd reviewed, no obstruction - likely constipation from chronic pain meds - has had several BM 2. SOB - with exertion - CXR without evidence of pneumonia - +wheezing, will start on prednisone and around the clock nebs and prn - titrate off O2 3. Generalized weakness - likely physical deconditioning - patient no cooperative with PT, makes her a poor candidate for inpatient rehab - will discharge back to SNF once respiratory status improves 4. htn - BP acceptable on felodipine and metoprolol 5. hypokalemia - likely from K depletion - now tolerating diet - check AM bmp 6. dvt pxx with lovenox
[2017-01-12 15:23] VITALS: BP 141/81; PULSE 76; TEMP 36.7; O2SAT 95
[2017-01-12 15:45] VITALS: O2SAT 92
[2017-01-12] MEDS: FENTANYL 25 MCG/HR TDSY TD SCH (17:40)
[2017-01-12] MEDS: ENOXAPARIN 40 MG/0.4 ML SYR SQ SCH (20:41)
[2017-01-12] MEDS: SENNA 8.6 MG TAB PO SCH (20:41)
[2017-01-12 21:00] VITALS: PULSE 81; O2SAT 95
[2017-01-12] MEDS: ALBUT/IPRATROP 3MG/0.5MG NEB 3 ML VIAL INH SCH (21:00)
[2017-01-12 22:59] VITALS: PULSE 88; O2SAT 95
[2017-01-12 23:33] VITALS: BP 131/89; PULSE 72; TEMP 36.8; O2SAT 92
--- NOTE | 2017-01-13 06:46 | Clinical Documentation Query ---
CLINICAL DOCUMENTATION QUERY Dr. BUTLER, In your clinical opinion is this patient being managed for: ( x ) Chronic diastolic CHF ( ) Other explanation of clinical findings (Please Explain) ( ) Unable to determine (Please Define) ( ) Need to Discuss ( ) Not Agree The medical record reflects the following clinical findings, treatment, and risk factors. Clinical Indicators: H/P indicates pt has a past medical history of unspecified CHF. Review of ECHO from Aug 2015 showed an EF of => 70% Treatment:metoprolol Risk Factors: age, HTN, venous insufficiency Severity-adjusted DRGs require coding specificity. "Congestive" heart failure is a non-specific diagnosis. Documentation should specify "acute vs. chronic" and "systolic vs. diastolic." Please clarify and document your clinical opinion in the progress notes and discharge summary. Terms such as "probable", "suspected", "likely", "questionable", "possible", or "still to be ruled out" are acceptable. IF IN AGREEMENT, YOU MUST DOCUMENT ABOVE DIAGNOSTIC STATEMENT IN DAILY PROGRESS NOTES AND DISCHARGE SUMMARY. This document is not part of the patient's record. Thank You, Waleska Barone, RN [phone]
[2017-01-13 07:36] VITALS: BP 132/85; PULSE 67; TEMP 36.7; O2SAT 95
[2017-01-13 07:53] LABS: HEMATOCRIT 39.4 % (37-47); MEAN CELL VOLUME 91.6 fL (80-100); MEAN CORPUSCULAR HEMOGLOBIN 30.2 pg (25-34); MEAN PLATELET VOLUME 8.7 fL (7.4-10.4); PLATELET COUNT 207 K/uL (130-400); WHITE BLOOD COUNT 6.48 K/uL (4.8-10.8)
[2017-01-13 08:12] VITALS: PULSE 88; O2SAT 92
[2017-01-13] MEDS: CHECK FENTANYL PATCH PLACEMENT SCH ×2 (08:16)
[2017-01-13] MEDS: ALBUT/IPRATROP 3MG/0.5MG NEB 3 ML VIAL INH SCH (08:26)
[2017-01-13 08:28] LABS: CALCIUM 7.9 mg/dl (8.5-10.1); CREATININE 0.82 mg/dl (0.60-1.20); POTASSIUM 3.7 mmol/L (3.5-5.1)
[2017-01-13] MEDS: POLYETHYLENE (MIRALAX) 17 GM PACK PO SCH (10:37)
[2017-01-13] MEDS: DICLOFENAC SOD 1% GEL 100 GM TUBE EXT SCH ×2 (10:38→14:06)
--- NOTE | 2017-01-13 10:41 | Discharge Summary ---
Discharge Summary Date of Service Jan 13, 2017. Discharge Summary Admission Date: Jan 12, 2017 at 09:06 Discharge Disposition: [facility] facility ([facility]) Principal Diagnosis: Weakness, constipation Medication Reconciliation Continued Medications: Acetaminophen (Tylenol) 325 Mg Tab 650 MG PO Q6H PRN for Pain or Fever, TAB NEEDED FOR PAIN RATED 1-3 ON A SCALE OF "0-10" OR FOR TEMPERATURE GREATER THAN 101 F. DO NOT EXCEED 3 GM APAP/24 HOURS Aspirin (Aspirin) 81 Mg Tab 81 MG PO DAILY Bisacodyl (Dulcolax) 10 Mg Sup 1 SUPP DE UD PRN for Constipation, SUP NEEDED FOR NO BOWEL MOVEMENT IN 4 DAYS Citalopram Hydrobromide (Celexa) 20 Mg Tab 20 MG PO DAILY, TAB Diclofenac Sodium (Topical) (Voltaren 1% Top Gel) 1 % Gel 4 GM TOP TID APPLY TO RIGHT KNEE Docusate Sodium (Colace) 100 Mg Cap 100 MG PO Q2D, CAP TAKE THIS MEDIATION ONCE DAILY AT BEDTIME Felodipine (Plendil Er) 5 Mg Tab 5 MG PO DAILY, TAB Fexofenadine HCl (Mucinex Allergy) 180 Mg Tab 600 MG PO DAILY Hydrocodone/Acetaminophen 10MG/325MG ([place] 10MG/325MG) Tab 1 TAB PO BID PRN for Pain, TAB Hydrocodone/Acetaminophen 5MG/325MG ([place] 5MG/325MG) Tab 1 TAB PO Q6H PRN for Pain, TAB NEEDED FOR PAIN RATED 5-10 ON A SCALE OF "0-10" Magnesium Hydroxide (Milk Of Magnesia) 30 Ml Susp 30 ML PO UD PRN for Constipation, ML NEEDED FOR NO BOWEL MOVEMENT FOR 9 SHIFTS Melatonin (Melatonin) 3 Mg Tab 3 MG PO HS Metoprolol Succinate (Metoprolol Succinate ER) 25 Mg Tabcr 25 MG PO DAILY Oxybutynin Chloride (Ditropan Xl) 5 Mg Tab 5 MG PO DAILY, TAB Polyethylene Glycol 3350 (Miralax) 1 Pow Pow 17 GM PO DAILY, GM Sodium Phosphate/Biphosphate (Fleet Enema) Hiral 1 EA DE UD PRN for Constipation, BTL IF AFTER 4 HOURS DULCOLAX SUPPOSITORY WAS INEFFECTIVE GIVE FLEET ENEMA Hospital Course The patient is an 86-year-old female well known to me from [facility] who presents after 2 days of vomiting, some of which was projectile. She has been unable to eat or drink very well over the last 2 days. She notes that her abdomen started getting more distended. She has had less and less bowel movements and then she started vomiting and she has not really been able to take anything p.o. since. She has not had diarrhea, in fact she has not really had much of any bowel movements and she had no preceding fevers, chills, or sweats. CT abd showed stool however, no obstruction was evident on imaging. Aggressive bowel regimen was administered and patient has had multiple large bowel movements since then. Patient was also found to have generalized weakness however, she refused to participate in PT/OT. She also had some scattered wheezing, however, she also refused to take prednisone or IV steroids. She was given around the clock nebulizer treatments and as prn. SHe will be discharged back to SNF as she is a poor candidate for rehab due to low motivation. Vital Signs Date Time Temp Pulse Resp B/P Pulse Ox O2 Delivery O2 Flow Rate FiO2 01/13/17 08:12 88 18 92 Nasal Cannula 2.0 01/13/17 07:36 36.7 132/85 01/10/17 20:45 92 NAD, AOx3 eomi, anicteric s1 s2 rrr, no murmurs appreciated no wheezing, has nasal cannula on but no O2 flowing with pOx >92% abd obese, soft, nt/nd +BS no LE edema 1. Nausea/vomiting - CT abd reviewed, no obstruction - likely constipation from chronic pain meds - has had several BM 2. SOB - with exertion - CXR without evidence of pneumonia - refused prednisone - will cont nebs and wean off O2 supplementation 3. Generalized weakness - likely physical deconditioning - patient no cooperative with PT, makes her a poor candidate for inpatient rehab - will discharge back to SNF once respiratory status improves 4. htn - BP acceptable on felodipine and metoprolol 5. GI screening - mentioned she might need routine colonoscopy. Advised to follow-up with Dr. Martinez and be referred to GI. 6. dvt pxx with lovenox Total Time Spent: Less than 30 minutes This includes examination of the patient, discharge planning, medication reconciliation, and communication with other providers. Discharge Instructions Please refer to the electronic Patient Visit Report (Discharge Instructions) for additional information. Additional Copies To Juan David Martinez D.O.
--- NOTE | 2017-01-13 10:43 | Discharge Instructions ---
Discharge Instructions Admission Reason for Admission: Abdominal Pain Discharge Discharge Diagnosis / Problem: TO SNF Discharge Goals Goal(s): Decrease discomfort, Improve function Activity Recommendations Activity Limitations: resume your previous activity . Current Hospital Diet Patient's current hospital diet: Regular Diet Discharge Diet Recommended Diet: AHA Diet (Heart Healthy) Pending Studies Studies pending at discharge: no Medical Emergencies . Who to Call and When: Medical Emergencies: If at any time you feel your situation is an emergency, please call 911 immediately. . Non-Emergent Contact Non-Emergency issues call your: Primary Care Provider . . "Provider Documentation" section prepared by Elaine Tucker. VTE Core Measure Inpt VTE Proph given/why not?: Enoxaparin (Lovenox)SQ
[2017-01-13 11:30] VITALS: O2SAT 92
[2017-01-13] MEDS: ASPIRIN 81 MG ECTAB PO SCH (12:53)
[2017-01-13] MEDS: FELODIPINE 5 MG TABCR PO SCH (12:53)
[2017-01-13] MEDS: OXYBUTYNIN CHLORIDE 5 MG TABCR PO SCH (12:54)
[2017-01-13] MEDS: CHOLECALCIFEROL 1000 INTER.UNIT TAB PO SCH (12:54)
[2017-01-13] MEDS: METOPROLOL SUCC 25MG EXT REL TAB PO SCH (12:54)
[2017-01-13] MEDS: GUAIFENESIN 600 MG TABCR PO SCH (12:54)
[2017-01-13] MEDS: CITALOPRAM 20 MG TAB PO SCH (12:54)
[2017-01-13 12:55] VITALS: BP 149/88; PULSE 87; O2SAT 91
[2017-01-13 13:56] VITALS: BP 149/88; PULSE 87; TEMP 36.7; O2SAT 91
== END 2017-01-13 15:00 | DRG 392 ==
LOC: ENRESERVTM → ENRESERVDT → EDBD 15:34 → C.EDC 15:36 → C.MSN 19:17 → OBSVTOIN 01-12 09:06
PROVIDERS: ADMIT Family Medicine; ATTEND Internal Medicine
DX: K59.03 Drug induced constipation (principal); J98.11 Atelectasis; F03.90 Unspecified dementia, unspecified severity, without behavioral disturbance, psychotic disturbance, mood disturbance, and anxiety; Z88.2 Allergy status to sulfonamides; E86.0 Dehydration; I10 Essential (primary) hypertension; M81.0 Age-related osteoporosis without current pathological fracture; N32.81 Overactive bladder; M19.90 Unspecified osteoarthritis, unspecified site; E83.51 Hypocalcemia; E55.9 Vitamin D deficiency, unspecified; E87.6 Hypokalemia; R09.02 Hypoxemia; I50.9 Heart failure, unspecified; Z96.642 Presence of left artificial hip joint

== ENCOUNTER → 2017-02-19 | Outpatient (CLI) | payer OTHER, BC ==
[~2017-02-19] MED LIST changes: +ACET-1311 PO; +ASPI-461 PO; +BISA10SU3 PR; +CITA20TA9 PO; +CLR10 PO; -CNT PO; +DICL1GEL12 TOP; +DOCU-94 PO; -DOCU100C PO; -ESCI10TA17 PO; +FELO5TAB PO; +FEXO3TAB PO; +FNTTP25 TOP; +HYDR-5688 PO; -LPR25 PO; -LXT PO; +MELA3TAB PO; +MOML PO; +MULT-506 PO; -NUTR-977 PO; +OXYB5TAB21 PO; +POLY335019 PO; +SODIENE PR; +TPRSR/25 PO; +TPRSR50 PO; +ZNT150 PO
== END ==
LOC: C.LABUPNIT 14:46
PROVIDERS: ATTEND Family Medicine
DX: J10.1 Influenza due to other identified influenza virus with other respiratory manifestations (principal)

== ENCOUNTER → 2017-04-06 | Outpatient (CLI) | payer OTHER, BC ==
--- NOTE | 2017-04-07 12:14 | CODING QUERY MEDICAL NECESSITY ---
SUPPORTING DIAGNOSIS NEEDED Dr. Griffiths, A supporting diagnosis is required for the test/procedure performed on this patient in order for us to be reimbursed by the patient's insurance. Please provide a supporting diagnosis for the following test/procedure listed below next to the test name along with your signature. *If there is no additional diagnosis for this patient that would support the following test/procedure please document that below next to the test/procedure. Test(s)/Procedure(s) that require a supporting diagnosis: * VITAMIN D 25 HYDROXY DIAGNOSIS: DATE OF SERVICE: 04/06/17 Provider Signature: Date: Thank you Aleksandar Carrasquillo [facility] Information Management Once completed, please kindly fax back to [phone] For questions please call [phone]
== END | disposition home or self-care (01) ==
LOC: C.LABUPNIT 09:12
PROVIDERS: ATTEND Nurse Practitioner Family
DX: E55.9 Vitamin D deficiency, unspecified (principal)

== ENCOUNTER 2017-08-02 13:54 | Inpatient (IN) | payer OTHER, BC ==
[~2017-08-02] VITALS: Ht 157.5 cm; Wt 86.7 kg
[~2017-08-02 13:54] MED LIST changes: -CLR10 PO; -FNTTP25 TOP; -MULT-506 PO; -TPRSR50 PO; -ZNT150 PO
[2017-08-02 15:15] LABS: BASO % 0.2 %; BASO ABS # 0.02 K/uL (0-0.2); COMPLETE YES; HEMATOCRIT 41.4 % (37-47); IG% 0.2 %; LYMPH ABS # 1.55 K/uL (1.2-3.4); MEAN CELL VOLUME 91.4 fL (80-100); MEAN CORPUSCULAR HEMOGLOBIN 31.1 pg (25-34); MEAN CORPUSCULAR HGB CONC 34.1 g/dl (32-36); MONO % 13.6 %; PLATELET COUNT 270 K/uL (130-400); RED BLOOD COUNT 4.53 M/uL (4.2-5.4); WHITE BLOOD COUNT 10.31 K/uL (4.8-10.8)
--- NOTE | 2017-08-02 15:33 | DIAGNOSTIC IMAGING REPORT ---
CHEST ONE VIEW PORTABLE CLINICAL HISTORY: 87 years-old Female presenting with CHEST PAIN. TECHNIQUE: Portable upright AP view of the chest was obtained. COMPARISON: 01/11/2017. FINDINGS: Mildly low lung volumes with hypoventilatory changes. Tortuosity of the thoracic aorta. Cardiac silhouette normal in size. Mild prominence of pulmonary vasculature. Lungs and pleural spaces clear. Degenerative changes of the glenohumeral joints, right greater than left ureter kyphoplasty changes noted. Upper abdomen normal. IMPRESSION: 1. Mildly low lung volumes with hypoventilatory changes. No focal infiltrate. Electronically signed by: Chong Kumari M.D. 08/02/2017 3:32 PM Dictated Date/Time: 08/02/2017 3:31 PM
[2017-08-02] MEDS ORDERED: MULT-506 PO (15:34)
[2017-08-02] MEDS ORDERED: FNTTP25 TOP (15:34)
[2017-08-02 15:42] LABS: ALT/SGPT 13 U/L (12-78); AST/SGOT 12 U/L (15-37); BLOOD UREA NITROGEN 22 mg/dl (7-18); BUN/CREATININE RATIO 24.2 (10-20); CALCIUM 8.3 mg/dl (8.5-10.1); CARBON DIOXIDE 28 mmol/L (21-32); CHLORIDE 105 mmol/L (98-107); GLUCOSE 113 mg/dl (70-99); POTASSIUM 3.5 mmol/L (3.5-5.1); SODIUM 139 mmol/L (136-145)
[2017-08-02 15:47] LABS: ALKALINE PHOSPHATASE 106 U/L (45-117)
[2017-08-02] MEDS ORDERED: ALBUT/IPRATROP 3MG/0.5MG NEB 3 ML VIAL INH STA ×2 (16:01→18:02)
[2017-08-02] MEDS ORDERED: SODIUM CHLORIDE 0.9% 1000ML 1,000 ML IV STA (16:01)
--- NOTE | 2017-08-02 16:01 | EMERGENCY ROOM VISIT NOTE ---
History Report prepared by Garima: Lona Rosales Under the Supervision of: Dr. Ajith Mcclelland M.D. First contact with patient: 14:09 Chief Complaint: URINARY SYMPTOMS Stated Complaint: BLADDER INFECTION, COUGH, FEVER,WHEEZING History of Present Illness The patient is an 87 year old female who presents to the Emergency Room with complaints of persistent urinary symptoms starting 2 days ago. The patient is incontinent at baseline. Over the past 2 days, her urine seems to be malodorous and bloody. This morning she developed a temperature of 99.1. She has also had cough, wheezing, and chest congestion for over 1 month. She has been using her inhaler to no significant relief. She used to reside at [facility] where she was on antibiotics. She moved out of [facility] 2 months ago and now lives with her daughter. She does not have a history of COPD or asthma. Her daughter notes that she has had some confusion starting 1 month ago. Yesterday, she was saying weird things and talking in her sleep. She complains of abdominal pain. She denies any nausea, vomiting, or back pain. She has been eating and drinking well. 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 She has been on a Fentanyl patch for 4 months now. She is able to walk short distances. She did have a fall 1.5 weeks ago, but seems to be doing well since then. Source of History: patient, family Onset: 2 days ago Position: other (global) Quality: other (urinary symptoms) Timing: other (persistent) Associated Symptoms: + cough, + abdominal pain, No nausea, No vomiting, No back pain Note: Pt has wheezing, chest congestion, confusion. Review of Systems See HPI for pertinent positives and negatives. A total of ten systems were reviewed and were otherwise negative. Past Medical & Surgical Medical Problems: (1) Abdominal pain (2) Cystitis (3) DJD (degenerative joint disease) (4) Generalized weakness (5) left hip prothesis (6) Pneumonia Family History No pertinent family history Social History Smoking Status: Never Smoker Marital Status: Housing Status: lives with family Occupation Status: retired Current/Historical Medications Scheduled Docusate Sodium (Colace), 100 MG PO DAILY Felodipine (Plendil Er), 5 MG PO DAILY Fentanyl (Fentanyl), 25 MCG TOP [id number] Melatonin (Melatonin), 3 MG PO HS Metoprolol Succinate (Metoprolol Succinate ER), 25 MG PO DAILY Multivitamin (Multivitamin), 1 TAB PO DAILY Oxybutynin Chloride (Ditropan Xl), 5 MG PO DAILY Scheduled PRN Polyethylene Glycol 3350 (Miralax), 17 GM PO DAILY PRN for Constipation Allergies Coded Allergies: Sulfamethoxazole w/Trimethoprim (Verified Allergy, Unknown, throat tightness, 08/16/15) Morphine (Unverified Adverse Reaction, Severe, STOPPED BREATHING, 08/02/17) Physical Exam Vital Signs Date Time Temp Pulse Resp B/P (MAP) Pulse Ox O2 Delivery O2 Flow Rate FiO2 08/02/17 20:30 79 16 144/81 93 Nasal Cannula 3.0 08/02/17 19:25 76 08/02/17 17:55 82 18 143/102 93 Nasal Cannula 2.0 08/02/17 17:03 93 Room Air 08/02/17 16:05 75 18 143/97 93 Room Air 08/02/17 14:50 Nasal Cannula 2.0 08/02/17 14:50 Nasal Cannula 2.0 08/02/17 14:16 83 08/02/17 14:00 36.8 77 20 119/80 91 Room Air Physical Exam GENERAL: Awake, alert, chronically ill-appearing, in no distress HENT: Normocephalic, atraumatic. Oropharynx unremarkable. Dry mucous membranes. EYES: Normal conjunctiva. Sclera non-icteric. NECK: Supple. No nuchal rigidity. FROM. No JVD. RESPIRATORY: Scattered wheezes, otherwise good air movement. CARDIAC: Regular rate, normal rhythm. Extremities warm and well perfused. Pulses equal. ABDOMEN: Soft, non-distended. Exaggerated tenderness to palpation throughout the abdomen. No rebound or guarding. No masses. RECTAL: Deferred. MUSCULOSKELETAL: Chest examination reveals no tenderness. The back is symmetrical on inspection without obvious abnormality. There is no CVA tenderness to palpation. No joint edema. LOWER EXTREMITIES: Calves are equal size bilaterally and non-tender. 1+ lower extremity edema. No discoloration. NEURO: At baseline. Normal sensorium. No sensory or motor deficits noted. SKIN: No rash or jaundice noted. Medical Decision & Procedures ER Provider Diagnostic Interpretation: Radiology results as stated below per my review and radiologist interpretation: CHEST ONE VIEW PORTABLE CLINICAL HISTORY: 87 years-old Female presenting with CHEST PAIN. TECHNIQUE: Portable upright AP view of the chest was obtained. COMPARISON: 01/11/2017. FINDINGS: Mildly low lung volumes with hypoventilatory changes. Tortuosity of the thoracic aorta. Cardiac silhouette normal in size. Mild prominence of pulmonary vasculature. Lungs and pleural spaces clear. Degenerative changes of the glenohumeral joints, right greater than left ureter kyphoplasty changes noted. Upper abdomen normal. IMPRESSION: 1. Mildly low lung volumes with hypoventilatory changes. No focal infiltrate. Electronically signed by: Chong Kumari M.D. 08/02/2017 3:32 PM Dictated Date/Time: 08/02/2017 3:31 PM Laboratory Results Test 08/02/17 14:45 08/02/17 15:58 Total Bilirubin 0.5 mg/dl (0.2-1) Direct Bilirubin 0.1 mg/dl (0-0.2) Aspartate Amino Transf (AST/SGOT) 12 U/L (15-37) Alanine Aminotransferase (ALT/SGPT) 13 U/L (12-78) Alkaline Phosphatase 106 U/L (45-117) Troponin I < 0.015 ng/ml (0-0.045) Pro-B-Type Natriuretic Peptide 952 pg/ml (0-1800) Total Protein 7.3 gm/dl (6.4-8.2) Albumin 3.0 gm/dl (3.4-5.0) Lipase 49 U/L (73-393) Urine Color YELLOW Urine Appearance SL CLOUDY (CLEAR) Urine pH 6.0 (4.5-7.5) Urine Specific [place] 1.015 (1.000-1.030) Urine Protein TRACE (NEG) Urine Glucose (UA) NEG (NEG) Urine Ketones TRACE (NEG) Urine Occult Blood TRACE (NEG) Urine Nitrite NEG (NEG) Urine Bilirubin NEG (NEG) Urine Urobilinogen NEG (NEG) Urine Leukocyte Esterase NEG (NEG) Urine RBC 0-4 /hpf (0-4) Urine WBC 5-10 /hpf (0-5) Urine Epithelial Cells 20-30 /lpf (0-5) Urine Bacteria 1+ (NEG) Urine Hyaline Casts 0 /lpf (0-5) Urine Mucus PRESENT (NONE PRSENT) Laboratory results reviewed by me Medications Administered Medications (Trade) Dose Ordered Sig/Tiffanie Route Start Time Stop Time Status Last Admin Dose Admin Albuterol/ Ipratropium (Duoneb) 3 ml NOW STAT INH 08/02/17 16:01 08/02/17 16:02 DC 08/02/17 16:13 3 ML Sodium Chloride 1,000 ml @ 999 mls/hr Q1H1M STAT IV 08/02/17 16:01 08/02/17 17:01 DC 08/02/17 16:13 999 MLS/HR Ceftriaxone Sodium (Rocephin Inj) 1 gm NOW STAT IV 08/02/17 17:06 08/02/17 17:07 DC 08/02/17 17:17 1 GM Albuterol/ Ipratropium (Duoneb) 3 ml NOW STAT INH 08/02/17 18:02 08/02/17 18:06 DC 08/02/17 18:53 3 ML Prednisone (PredniSONE TAB) 60 mg NOW STAT PO 08/02/17 18:02 08/02/17 18:06 DC 08/02/17 18:53 60 MG Azithromycin (Zithromax Tab) 500 mg NOW ONCE PO 08/02/17 18:15 08/02/17 18:16 DC 08/02/17 18:53 500 MG ECG Indication: altered mental status Rate (beats per minute): 77 Rhythm: sinus rhythm Findings: 1st degree AV block, other (normal axis) Comparison ECG Date: 10-Jan-2017 Change: no significant change ED Course 1420: The patient was evaluated in room B4B. A complete history and physical exam was performed. 1601: NSS 1000 ml @ 999 mls/hr IV, Duoneb 3 ml INH. 1706: Rocephin Inj 1 gm IV. 1800: I reevaluated the patient. She is now on oxygen. She is normally not on oxygen. She will get another DuoNeb and ambulatory trial. 180: Prednisone 60 mg PO, Duoneb 3 ml INH. 181: Azithromycin 500 mg PO. Medical Decision I reviewed the patient's past medical history, medications, and the nursing notes as described above. Differential diagnosis: pneumonia, bronchitis, UTI, dehydration, electrolyte abnormality. The patient is an 87-year-old woman who presents to emergency department with concern for urinary tract infection with increased frequency and foul odor of urine with intermittent confusion per history of present illness. Exam patient appears chronically ill but in no acute distress. She is afebrile with stable vital signs. Family reports that the patient has had persistent cough and congestion since discharge from rehabilitation where she was treated for a bronchitis with antibiotic and steroids. They endorse that her cough today is not any worse than it has been. On exam she does have scattered wheezes but otherwise have good air movement. UA is positive for UTI. Patient was given ceftriaxone and plan initially was to discharge the patient back to home where she has home services. However, patient has oxygen requirement that has persistent during her observation and will be 90-91% on RA. Patient was given nebulizer x 2 with some good effect however still with oxygen requirement. Given prednisone and azithro. Case d/w medicine hospitalist who will admit the patient for further management. Medication Reconcilliation Current Medication List: was personally reviewed by me Impression Primary Impression: Urinary tract infection Scribe Attestation The scribe's documentation has been prepared under my direction and personally reviewed by me in its entirety. I confirm that the note above accurately reflects all work, treatment, procedures, and medical decision making performed by me. Departure Information Referrals Bennie Rust (PCP) Patient Instructions My [facility]
[2017-08-02 16:07] LABS: MANUAL MICROSCOPIC REQUIRED? YES; URINE APPEARANCE SL CLOUDY (CLEAR); URINE BILIRUBIN NEG (NEG); URINE COLOR YELLOW; URINE NITRITE NEG (NEG); URINE SPECIFIC GRAVITY 1.015 (1.000-1.030); UROBILINOGEN NEG (NEG)
[2017-08-02 16:08] LABS: REVIEW REQ? NO
[2017-08-02 16:13] LABS: URINE HYALINE CAST 0 /lpf (0-5)
[2017-08-02 16:14] LABS: URINE BACTERIA 1+ (NEG); URINE MUCUS PRESENT (NONE PRSENT); URINE RBC 0-4 /hpf (0-4)
[2017-08-02] MEDS ORDERED: CEFTRIAXONE SOD INJ 1 GM ADDVIAL IV STA (17:06)
[2017-08-02] MEDS ORDERED: AZITHROMYCIN 250 MG TAB PO ONE (18:15)
--- NOTE | 2017-08-02 20:25 | History and Physical ---
History & Physical Date & Time of Service: Aug 02, 2017 at 20:24 Chief Complaint: Bladder Infection, Cough, Fever,Wheezing Primary Care Physician: No Doctor, Assigned History of Present Illness Source: family, caregiver Mahogany is an 87 yo F with hypertension, bilateral knee osteoarthritis, and potentially dementia who presents with confusion and weakness over the last 3 weeks. History was primarily obtained from the patient's daughter and her caregiver as the patient is incredibly somnolent. Daughter reports over the last 3 weeks the patient has been intermittently confused, and has been overall declining. She reports she thought she had a urinary tract infection and she had foul-smelling urine. She also has had a significant cough and congestion, and was hypoxic upon arrival to the ER. The patient has been steadily declining over the last year and a half. She initially had a fall and went to [facility] for rehabilitation, and then to the [facility] to reside for a few months. She has gained about 40 pounds throughout this time. She has also been less able to ambulate. She is not currently receiving physical therapy. Family reports she is generally bedbound , but can walk 3-5 feet with a wheelchair to transferred. Their ultimate goal would be to keep her at home, and not return to either [facility] or [facility] if rehabilitation is necessary. In the emergency department, her oxygen saturations in the 90-91%, despite 2 L of nasal cannula oxygen. She has never been on oxygen the past. She did have a pneumonia a few months ago while at the [facility], and multiple bladder infections. Daughter reports that since then she has never fully recovered. Past Medical/Surgical History Medical Problems: (1) DJD (degenerative joint disease) Status: Chronic (2) left hip prothesis Status: Chronic PSHx: Noncontributory Family History No pertinent family history Social History Smoking Status: Never Smoker Smokeless Tobacco Use: No Alcohol Use: none Drug Use: none Marital Status: Housing status: lives with family Occupational Status: retired Immunizations History of Influenza Vaccine: Yes History of Tetanus Vaccine?: Yes History of Pneumococcal: Yes History of Hepatitis B Vaccine: Unknown Multi-Drug Resistant Organisms History of MDRO: No Allergies Coded Allergies: Sulfamethoxazole w/Trimethoprim (Verified Allergy, Unknown, throat tightness, 08/16/15) Morphine (Unverified Adverse Reaction, Severe, STOPPED BREATHING, 08/02/17) Home Medications Scheduled Docusate Sodium (Colace), 100 MG PO DAILY Felodipine (Plendil Er), 5 MG PO DAILY Fentanyl (Fentanyl), 25 MCG TOP [id number] Melatonin (Melatonin), 3 MG PO HS Metoprolol Succinate (Metoprolol Succinate ER), 25 MG PO DAILY Multivitamin (Multivitamin), 1 TAB PO DAILY Oxybutynin Chloride (Ditropan Xl), 5 MG PO DAILY Scheduled PRN Polyethylene Glycol 3350 (Miralax), 17 GM PO DAILY PRN for Constipation Review of Systems See HPI for pertinent positives & negatives. A total of 10 systems reviewed with the patients daughter and were otherwise negative. Physical Exam Vital Signs Date Time Temp Pulse Resp B/P (MAP) Pulse Ox O2 Delivery O2 Flow Rate FiO2 08/02/17 19:25 76 08/02/17 17:03 93 Room Air 08/02/17 16:05 75 18 143/97 93 Room Air 08/02/17 14:50 Nasal Cannula 2.0 08/02/17 14:50 Nasal Cannula 2.0 08/02/17 14:16 83 08/02/17 14:00 36.8 77 20 119/80 91 Room Air General Appearance: WD/WN, no apparent distress, + obese, + pertinent finding ( large neck circumference) Head: normocephalic, atraumatic Eyes: normal inspection, PERRL ENT: hearing grossly normal Neck: supple, no JVD Respiratory/Chest: + wheezing (diffuse) Cardiovascular: regular rate, rhythm, no edema, no murmur, normal peripheral pulses Abdomen/GI: non tender, soft Extremities/Musculoskelatal: no calf tenderness Neurologic/Psych: + disoriented Skin: no rash Diagnostics Laboratory Results Results Past 24 Hours Test 08/02/17 14:45 08/02/17 15:58 Range/Units White Blood Count 10.31 4.8-10.8 K/uL Red Blood Count 4.53 4.2-5.4 M/uL Hemoglobin 14.1 12.0-16.0 g/dL Hematocrit 41.4 37-47 % Mean Corpuscular Volume 91.4 80-100 fL Mean Corpuscular Hemoglobin 31.1 25-34 pg Mean Corpuscular Hemoglobin Concent 34.1 32-36 g/dl Platelet Count 270 130-400 K/uL Mean Platelet Volume 9.0 7.4-10.4 fL Neutrophils (%) (Auto) 70.0 % Lymphocytes (%) (Auto) 15.0 % Monocytes (%) (Auto) 13.6 % Eosinophils (%) (Auto) 1.0 % Basophils (%) (Auto) 0.2 % Neutrophils # (Auto) 7.22 1.4-6.5 K/uL Lymphocytes # (Auto) 1.55 1.2-3.4 K/uL Monocytes # (Auto) 1.40 0.11-0.59 K/uL Eosinophils # (Auto) 0.10 0-0.5 K/uL Basophils # (Auto) 0.02 0-0.2 K/uL RDW Standard Deviation 44.7 36.4-46.3 fL RDW Coefficient of Variation 13.5 11.5-14.5 % Immature Granulocyte % (Auto) 0.2 % Immature Granulocyte # (Auto) 0.02 0.00-0.02 K/uL Sodium Level 139 136-145 mmol/L Potassium Level 3.5 3.5-5.1 mmol/L Chloride Level 105 98-107 mmol/L Carbon Dioxide Level 28 21-32 mmol/L Anion Gap 6.0 3-11 mmol/L Blood Urea Nitrogen 22 7-18 mg/dl Creatinine 0.90 0.60-1.20 mg/dl Est Creatinine Clear Calc Drug Dose 42.7 ml/min Estimated GFR () 65.7 Estimated GFR (Non- 56.7 BUN/Creatinine Ratio 24.2 10-20 Random Glucose 113 70-99 mg/dl Calcium Level 8.3 8.5-10.1 mg/dl Total Bilirubin 0.5 0.2-1 mg/dl Direct Bilirubin 0.1 0-0.2 mg/dl Aspartate Amino Transf (AST/SGOT) 12 15-37 U/L Alanine Aminotransferase (ALT/SGPT) 13 12-78 U/L Alkaline Phosphatase 106 45-117 U/L Troponin I < 0.015 0-0.045 ng/ml Pro-B-Type Natriuretic Peptide 952 0-1800 pg/ml Total Protein 7.3 6.4-8.2 gm/dl Albumin 3.0 3.4-5.0 gm/dl Lipase 49 73-393 U/L Urine Color YELLOW Urine Appearance SL CLOUDY CLEAR Urine pH 6.0 4.5-7.5 Urine Specific [place] 1.015 1.000-1.030 Urine Protein TRACE NEG Urine Glucose (UA) NEG NEG Urine Ketones TRACE NEG Urine Occult Blood TRACE NEG Urine Nitrite NEG NEG Urine Bilirubin NEG NEG Urine Urobilinogen NEG NEG Urine Leukocyte Esterase NEG NEG Urine RBC 0-4 0-4 /hpf Urine WBC 5-10 0-5 /hpf Urine Epithelial Cells 20-30 0-5 /lpf Urine Bacteria 1+ NEG Urine Hyaline Casts 0 0-5 /lpf Urine Mucus PRESENT NONE PRSENT Microbiology Results 08/02/17 Urine Culture, Received Pending Diagnostic Radiology [~ rep ct add3]] CHEST ONE VIEW PORTABLE CLINICAL HISTORY: 87 years-old Female presenting with CHEST PAIN. TECHNIQUE: Portable upright AP view of the chest was obtained. COMPARISON: 01/11/2017. FINDINGS: Mildly low lung volumes with hypoventilatory changes. Tortuosity of the thoracic aorta. Cardiac silhouette normal in size. Mild prominence of pulmonary vasculature. Lungs and pleural spaces clear. Degenerative changes of the glenohumeral joints, right greater than left ureter kyphoplasty changes noted. Upper abdomen normal. IMPRESSION: 1. Mildly low lung volumes with hypoventilatory changes. No focal infiltrate. EKG 1st degree AV block, QTc 466 Impression Assessment and Plan 87 yo F with multiple co-morbidities who presents with hypoxia, fatigue, and somnolence - top ddx pneumonia vs bronchitis, though will await urine culture in case of UTI. Acute hypoxic episode - Received Azithromycin and Prednisone in ED. Will obtain repeat CXR tomorrow prior to continuing abx, may need stronger abx - Duonebs - Continuous pulse ox Potential UTI - Will await culture - Received Rocephin in ED Hypertension - Continue home calcium channel griselda Chronic bilateral knee pain - Continue home fentanyl patch - PT / OT evals Code status: DNR Dispo: Telemetry VTE: Heparin Attending Addendum: I have physically seen and examined this patient, have directed the resident's medical activities, and agree with the H&P as noted above with the following exceptions as noted. The patient is somnolent, normocephalic and atraumatic, lying in bed and in no acute distress. HEENT--PERRL, EOMI, mucous membranes and oropharynx dry. Neck--supple, no JVD or bruits, thyroid normal, trachea midline, no adenopathy. Heart--normal S1 and S2, no extra beats, no murmurs, rubs or gallops. Lungs--coarse breath sounds bilaterally, no respiratory distress, no accessory muscle use. Abdomen--normal bowel sounds and soft, nontender and nondistended, no hernias or masses, no organomegaly and obese. Extremities--no cyanosis, clubbing or edema. There are good distal pulses b/l. Dermatologic--normal skin turgor, normal color, warm and dry, no abnormal lymph nodes, no rash. Neurologic--cranial nerves II through XII grossly intact. Rheumatologic--deferred due to somnolence Psychiatric--somnolent Assessment and Plan: 1. Acute respiratory failure with hypoxia/questionable aspiration pneumonitis-- Ceftriaxone 1 g IV daily, Levaquin 500 milligrams IV daily. Duonebs every 4 hours while awake and every 2 hours when necessary. Solu-Medrol 20 mg IV every 8 hours. 2. Questionable UTI-- Antibiotics as above. Follow urine culture and sensitivities. Level of Care Telemetry Advanced Directives Existing Advance Directive: Yes Existing Living Will: Yes Existing Power of Unit Control Worker: Yes Resuscitation Status DO NOT RESUSCITATE VTE Prophylaxis VTE Risk Assessment Done? Y/N: Yes Risk Level: Moderate Given or contraindicated: SCD's Social Service Consult None Apply Resident Tracking Resident Involvement: Resident Care Provided Care Provided: Adult Hospital Medicine
[2017-08-02] MEDS ORDERED: ONDANSETRON INJ 2 MG/ML 2 ML VIAL IV PRN (20:30)
[2017-08-02] MEDS ORDERED: MAGNESIUM HYDROXIDE SUSP 30 ML UDC PO PRN (20:30)
[2017-08-02] MEDS ORDERED: POLYETHYLENE (MIRALAX) 17 GM PACK PO PRN (20:30)
[2017-08-02] MEDS ORDERED: ACETAMINOPHEN 325 MG TAB PO PRN (20:30)
[2017-08-02] MEDS ORDERED: ALUMINUM/MAGNESIUM/SIMETH (MAALOX MAX) 30 ML UDC PO PRN (20:30)
[2017-08-02] MEDS ORDERED: NON-FORMULARY MEDICATION (Polyethylene Glycol 3350 (Miralax) 17 GM) PO PRN (20:45)
[2017-08-02 21:30] VITALS: PULSE 72; O2SAT 100
[2017-08-02] MEDS ORDERED: LEVALBUTEROL 1.25MG/0.5ML NEB INH SCH (21:30)
[2017-08-02] MEDS ORDERED: IPRATROPIUM BROMIDE NEB SOLN 0.02% 2.5 ML VIAL INH SCH (21:30)
[2017-08-02] MEDS: CHECK FENTANYL PATCH PLACEMENT SCH (23:39)
[2017-08-02] MEDS: FENTANYL 25 MCG/HR TDSY TD SCH (23:39)
[2017-08-02 23:41] VITALS: BP_SYST 150; BP_SYST 206; BP_DIAS 141; BP_DIAS 66; PULSE 80; TEMP 36.8; O2SAT 98; Ht 157.5 cm; Wt 86.7 kg
[2017-08-02 23:58] LABS: INR 1.1 (0.9-1.1); PARTIAL THROMBOPLASTIN RATIO 1.1; PROTHROMBIN TIME (PATIENT) 11.3 SECONDS (9.0-12.0)
[2017-08-03] VITALS (14 sets, daily range): BP systolic 108–148; BP diastolic 67–93; PULSE 64–86; TEMP 36.4–37; O2SAT 90–96
[2017-08-03 07:22] LABS: BASO % 0.1 %; BASO ABS # 0.01 K/uL (0-0.2); COMPLETE YES; HEMATOCRIT 42.2 % (37-47); IG% 0.1 %; LYMPH % 8.3 %; LYMPH ABS # 0.72 K/uL (1.2-3.4); MEAN CELL VOLUME 92.7 fL (80-100); MEAN CORPUSCULAR HEMOGLOBIN 29.2 pg (25-34); MEAN CORPUSCULAR HGB CONC 31.5 g/dl (32-36); MEAN PLATELET VOLUME 9.1 fL (7.4-10.4); NEUT % 86.5 %; PLATELET COUNT 251 K/uL (130-400); RED BLOOD COUNT 4.55 M/uL (4.2-5.4); WHITE BLOOD COUNT 8.67 K/uL (4.8-10.8)
[2017-08-03 07:48] LABS: BUN/CREATININE RATIO 30.4 (10-20); CALCIUM 8.4 mg/dl (8.5-10.1); CREATININE 0.72 mg/dl (0.60-1.20)
[2017-08-03] MEDS: CHECK FENTANYL PATCH PLACEMENT SCH ×2 (08:48→16:34)
[2017-08-03] MEDS: METOPROLOL SUCC 25MG EXT REL TAB PO SCH (08:49)
[2017-08-03] MEDS: DOCUSATE SODIUM 100 MG CAP PO SCH (08:49)
[2017-08-03] MEDS: FELODIPINE 5 MG TABCR PO SCH (08:49)
[2017-08-03] MEDS: OXYBUTYNIN CHLORIDE 5 MG TABCR PO SCH (08:50)
[2017-08-03] MEDS: MULTIVITAMIN TAB PO SCH (08:50)
[2017-08-03] MEDS: HEPARIN SOD 5000 UNIT/0.5 ML CARP SQ SCH ×2 (08:53→21:01)
[2017-08-03] MEDS ORDERED: FENTANYL PATCH REMOVE & WASTE SCH (08:59)
[2017-08-03] MEDS ORDERED: FENTANYL 25 MCG/HR TDSY TD SCH (09:00)
[2017-08-03] MEDS: ALBUT/IPRATROP 3MG/0.5MG NEB 3 ML VIAL INH SCH ×4 (09:35→20:28)
--- NOTE | 2017-08-03 10:00 | Clinical Documentation Query ---
VERNON Olivo : CLINICAL DOCUMENTATION QUERIES QUERY 1 OF 2 Patient is an 87 year old female admitted for evaluation and treatment of hypoxia, fatigue, somnolence and confusion in the setting of possible aspiration pneumonia and/or UTI. She is being treated with IV antibiotics pending blood and urine cultures. As clinically appropriate, consider documentation as suggested below an an alteration in mental status is the hallmark symptom of encephalopathy. In your clinical opinion is this patient being managed for: ( ) Metabolic encephalopathy secondary to possible aspiration pneumonia and/or UTI (x ) Not Agree ( ) Other explanation of clinical findings (Please Explain) ( ) Unable to determine (Please Define) ( ) Need to Discuss The medical record reflects the following clinical findings, treatment, and risk factors. Clinical Indicators: As above Treatment: IV antibiotics pending blood and urine cultures Risk Factors: Age, infection QUERY 2 OF 2 Clinical documentation includes a diagnosis of: Acute Respiratory Failure. H&P documentation includes "no apparent distress", "no respiratory distress", and "no accessory muscle use". Neither respiratory rate nor heart rate were elevated. No abnormal SpO2 saturations documented in the medical record. Due to stringent requirements by our coding department, multiple clinical indicators associated with this diagnosis must be present in order for this to be coded/captured within the medical record. If appropriate, please document 2 or more of the following clinical indicators in daily progress notes and the discharge summary. If you feel the diagnosis of acute respiratory failure was made in error, or do not agree with it, simply discontinue documentation thereof. Acute Respiratory Failure indicators include: * Respirations >28 * Air hunger * Use of accessory muscles of respiration * Inability to speak in full sentences * Cyanosis * Pulse ox <90% RA or <95% on O2 *pH <7.35 or >7.45 * pO2 < 60 mm Hg (or 10mm below COPD patient's baseline) * pCO2 >50mm Hg (or 10mm above COPD patient's baseline) * mechanical ventilation * Increased work of breathing * Tachypnea Please clarify and document your clinical opinion in the progress notes and discharge summary. Terms such as "probable", "suspected", "likely", "questionable", "possible", or "still to be ruled out" are acceptable. IF IN AGREEMENT, YOU MUST DOCUMENT ABOVE DIAGNOSTIC STATEMENT IN DAILY PROGRESS NOTES AND DISCHARGE SUMMARY. This document is not part of the patient's record. Thank You, Rolando Ly, LEONEL [phone]
--- NOTE | 2017-08-03 10:03 | Clinical Documentation Query ---
MICHAEL CuetoHAVI : CLINICAL DOCUMENTATION QUERIES QUERY 1 OF 2 Patient is an 87 year old female admitted for evaluation and treatment of hypoxia, fatigue, somnolence and confusion in the setting of possible aspiration pneumonia and/or UTI. She is being treated with IV antibiotics pending blood and urine cultures. As clinically appropriate, consider documentation as suggested below an an alteration in mental status is the hallmark symptom of encephalopathy. In your clinical opinion is this patient being managed for: ( x ) Metabolic encephalopathy secondary to possible aspiration pneumonia and/or UTI ( ) Not Agree ( ) Other explanation of clinical findings (Please Explain) ( ) Unable to determine (Please Define) ( ) Need to Discuss The medical record reflects the following clinical findings, treatment, and risk factors. Clinical Indicators: As above Treatment: IV antibiotics pending blood and urine cultures Risk Factors: Age, infection QUERY 2 OF 2 Clinical documentation includes a diagnosis of: Acute Respiratory Failure. H&P documentation includes "no apparent distress", "no respiratory distress", and "no accessory muscle use". Neither respiratory rate nor heart rate were elevated. No abnormal SpO2 saturations documented in the medical record. Due to stringent requirements by our coding department, multiple clinical indicators associated with this diagnosis must be present in order for this to be coded/captured within the medical record. If appropriate, please document 2 or more of the following clinical indicators in daily progress notes and the discharge summary. If you feel the diagnosis of acute respiratory failure was made in error, or do not agree with it, simply discontinue documentation thereof. Acute Respiratory Failure indicators include: * Respirations >28 * Air hunger * Use of accessory muscles of respiration * Inability to speak in full sentences * Cyanosis * Pulse ox <90% RA or <95% on O2 *pH <7.35 or >7.45 * pO2 < 60 mm Hg (or 10mm below COPD patient's baseline) * pCO2 >50mm Hg (or 10mm above COPD patient's baseline) * mechanical ventilation * Increased work of breathing * Tachypnea Please clarify and document your clinical opinion in the progress notes and discharge summary. Terms such as "probable", "suspected", "likely", "questionable", "possible", or "still to be ruled out" are acceptable. IF IN AGREEMENT, YOU MUST DOCUMENT ABOVE DIAGNOSTIC STATEMENT IN DAILY PROGRESS NOTES AND DISCHARGE SUMMARY. This document is not part of the patient's record. Thank You, Rolando Ly, RN [phone]
--- NOTE | 2017-08-03 10:19 | Family Medicine Progress Note ---
Progress Note Date of Service Aug 03, 2017. Subjective Pt evaluation today including: conversation w/ patient, physical exam, chart review, lab review, conversation w/ security and privacy consultant, review of inpatient medication list Pain: none PO Intake: good Voiding: incontinence Patient admitted overnight due to increase in oxygen requirements Have taken her off oxygen and she remains in the 90's with her O2 sats. She continues to feel as if she has something stuck in her throat and she keeps trying to cough it up She does desat to 88-90 when she tries to talk a lot She did mention that at times she will be incontinent of urine, usually when she is laying flat Constitutional: No fever, No chills Respiratory: + cough, + sputum, No shortness of breath, No hemoptysis Cardiovascular: No chest pain, No edema, No palpitations Abdomen: No pain, No nausea, No vomiting, No diarrhea, No constipation Female : + incontinence, No dysuria, No urinary frequency Endo: No fatigue Skin: No rash, No itch Medications Current Inpatient Medications Medications (Trade) Dose Ordered Sig/Tiffanie Route Start Time Stop Time Status Last Admin Dose Admin Acetaminophen (Tylenol Tab) 650 mg Q4H PRN PO 08/02/17 20:30 09/01/17 20:29 Al Hydrox/Mg Hydrox/Simethicone (Maalox Max Susp) 15 ml Q4H PRN PO 08/02/17 20:30 09/01/17 20:29 Magnesium Hydroxide (Milk Of Magnesia Susp) 30 ml Q6H PRN PO 08/02/17 20:30 09/01/17 20:29 Polyethylene (Miralax Powder Packet) 17 gm DAILY PRN PO 08/02/17 20:30 09/01/17 20:29 Ondansetron HCl (Zofran Inj) 4 mg Q6H PRN IV 08/02/17 20:30 09/01/17 20:29 Heparin Sodium (Porcine) (Heparin Sq 5000 Unit/0.5ml) 5,000 unit Q12H SQ 08/03/17 09:00 09/02/17 08:59 08/03/17 08:53 5,000 UNIT Docusate Sodium (coLACE CAP) 100 mg DAILY PO 08/03/17 09:00 09/02/17 08:59 08/03/17 08:49 100 MG Felodipine (Plendil Tabcr) 5 mg DAILY PO 08/03/17 09:00 09/02/17 08:59 08/03/17 08:49 5 MG Metoprolol Succinate (Toprol Xl Tab) 25 mg DAILY PO 08/03/17 09:00 09/02/17 08:59 08/03/17 08:49 25 MG Multivitamins (Multivitamin Tab) 1 tab DAILY PO 08/03/17 09:00 09/02/17 08:59 08/03/17 08:50 1 TAB Oxybutynin Chloride (Ditropan-Xl Tab) 5 mg DAILY PO 08/03/17 09:00 09/02/17 08:59 08/03/17 08:50 5 MG Miscellaneous Information (Check Fentanyl Patch Placement) 1 ea QS N/A 08/03/17 00:00 09/02/17 00:00 08/03/17 08:48 1 EA Fentanyl (Duragesic Patch) 25 mcg Q3D@2330 TD 08/02/17 23:30 08/16/17 23:29 08/02/17 23:39 25 MCG Miscellaneous (Fentanyl Patch Remove & Waste) 1 ea Q3D@2329 N/A 08/05/17 23:29 09/04/17 23:28 Albuterol/ Ipratropium (Duoneb) 3 ml QIDR INH 08/03/17 12:00 09/02/17 11:59 08/03/17 09:35 3 ML Objective Vital Signs Date Time Temp Pulse Resp B/P (MAP) Pulse Ox O2 Delivery O2 Flow Rate FiO2 08/03/17 09:35 78 20 91 Room Air 08/03/17 08:15 36.8 86 18 132/69 (90) 96 08/03/17 04:00 95 Nasal Cannula 4.0 08/03/17 03:10 36.9 86 20 137/83 (101) 95 Nasal Cannula 4.0 08/02/17 23:41 36.8 80 20 150/66 98 Mask 4.0 206/141 08/02/17 22:34 77 22 152/84 97 08/02/17 21:30 98 Oxymask 6.0 08/02/17 21:30 72 20 100 Non-Rebreather 15.0 08/02/17 21:00 99 Non-Rebreather 15.0 08/02/17 20:30 79 16 144/81 93 Nasal Cannula 3.0 08/02/17 19:25 76 08/02/17 17:55 82 18 143/102 93 Nasal Cannula 2.0 08/02/17 17:03 93 Room Air 08/02/17 16:05 75 18 143/97 93 Room Air 08/02/17 14:50 Nasal Cannula 2.0 08/02/17 14:50 Nasal Cannula 2.0 08/02/17 14:16 83 08/02/17 14:00 36.8 77 20 119/80 91 Room Air Physical Exam General Appearance: WD/WN, no apparent distress ENT: hearing grossly normal, pharynx normal Neck: no carotid bruits, + pertinent finding (difficult to assess JVD) Respiratory/Chest: chest non-tender, no respiratory distress, no accessory muscle use, + wheezing (bilateral wheeze) Cardiovascular: regular rate, rhythm, no murmur Abdomen: normal bowel sounds, non tender, soft Extremities: no calf tenderness, normal capillary refill Neurologic/Psychiatric: + pertinent finding (orientated to person, place and knows the year but does not know the month) Laboratory Results Results Past 24 Hours Test 08/02/17 14:45 08/02/17 15:58 08/02/17 23:12 08/03/17 06:57 Range/Units White Blood Count 10.31 8.67 4.8-10.8 K/uL Red Blood Count 4.53 4.55 4.2-5.4 M/uL Hemoglobin 14.1 13.3 12.0-16.0 g/dL Hematocrit 41.4 42.2 37-47 % Mean Corpuscular Volume 91.4 92.7 80-100 fL Mean Corpuscular Hemoglobin 31.1 29.2 25-34 pg Mean Corpuscular Hemoglobin Concent 34.1 31.5 32-36 g/dl Platelet Count 270 251 130-400 K/uL Mean Platelet Volume 9.0 9.1 7.4-10.4 fL Neutrophils (%) (Auto) 70.0 86.5 % Lymphocytes (%) (Auto) 15.0 8.3 % Monocytes (%) (Auto) 13.6 5.0 % Eosinophils (%) (Auto) 1.0 0.0 % Basophils (%) (Auto) 0.2 0.1 % Neutrophils # (Auto) 7.22 7.50 1.4-6.5 K/uL Lymphocytes # (Auto) 1.55 0.72 1.2-3.4 K/uL Monocytes # (Auto) 1.40 0.43 0.11-0.59 K/uL Eosinophils # (Auto) 0.10 0.00 0-0.5 K/uL Basophils # (Auto) 0.02 0.01 0-0.2 K/uL RDW Standard Deviation 44.7 45.7 36.4-46.3 fL RDW Coefficient of Variation 13.5 13.5 11.5-14.5 % Immature Granulocyte % (Auto) 0.2 0.1 % Immature Granulocyte # (Auto) 0.02 0.01 0.00-0.02 K/uL Sodium Level 139 143 136-145 mmol/L Potassium Level 3.5 4.0 3.5-5.1 mmol/L Chloride Level 105 108 98-107 mmol/L Carbon Dioxide Level 28 29 21-32 mmol/L Anion Gap 6.0 6.0 3-11 mmol/L Blood Urea Nitrogen 22 22 7-18 mg/dl Creatinine 0.90 0.72 0.60-1.20 mg/dl Est Creatinine Clear Calc Drug Dose 42.7 54.1 ml/min Estimated GFR () 65.7 86.1 Estimated GFR (Non- 56.7 74.3 BUN/Creatinine Ratio 24.2 30.4 10-20 Random Glucose 113 146 70-99 mg/dl Calcium Level 8.3 8.4 8.5-10.1 mg/dl Total Bilirubin 0.5 0.2-1 mg/dl Direct Bilirubin 0.1 0-0.2 mg/dl Aspartate Amino Transf (AST/SGOT) 12 15-37 U/L Alanine Aminotransferase (ALT/SGPT) 13 12-78 U/L Alkaline Phosphatase 106 45-117 U/L Troponin I < 0.015 0-0.045 ng/ml Pro-B-Type Natriuretic Peptide 952 0-1800 pg/ml Total Protein 7.3 6.4-8.2 gm/dl Albumin 3.0 3.4-5.0 gm/dl Lipase 49 73-393 U/L Urine Color YELLOW Urine Appearance SL CLOUDY CLEAR Urine pH 6.0 4.5-7.5 Urine Specific [place] 1.015 1.000-1.030 Urine Protein TRACE NEG Urine Glucose (UA) NEG NEG Urine Ketones TRACE NEG Urine Occult Blood TRACE NEG Urine Nitrite NEG NEG Urine Bilirubin NEG NEG Urine Urobilinogen NEG NEG Urine Leukocyte Esterase NEG NEG Urine RBC 0-4 0-4 /hpf Urine WBC 5-10 0-5 /hpf Urine Epithelial Cells 20-30 0-5 /lpf Urine Bacteria 1+ NEG Urine Hyaline Casts 0 0-5 /lpf Urine Mucus PRESENT NONE PRSENT Prothrombin Time 11.3 9.0-12.0 SECONDS Prothromb Time International Ratio 1.1 0.9-1.1 Activated Partial Thromboplast Time 29.6 21.0-31.0 SECONDS Partial Thromboplastin Ratio 1.1 Microbiology Results 08/02/17 Urine Culture, Received Pending Assessment and Plan 87 yo F with multiple co-morbidities who presented with confusion for the last couple weeks and was admitted due to increasing oxygen requirements Metabolic encephalopathy secondary to possible aspiration pneumonia and/or UTI - Now alert. Supportive care Possible aspiration event with hypoxia on admission. - Received Azithromycin and Prednisone in ED - continue. - Without WCC, afebrile and CXR without acute findings - Patient with mild wheeze bilaterally therefore will continue duonebs - Possible that patient aspirating and possibility of sleep apnea; therefore will order nocturnal pulse ox and swallow eval - Continuous pulse ox Urinary Incontinence - continue oxybutynin - may need to consider increasing dose if patient continues to have urinary incontinence - will continue to monitor Potential UTI - Will await culture - Received Rocephin in ED- continue Hypertension - Continue home calcium channel griselda Chronic bilateral knee pain - Continue home fentanyl patch - PT / OT evals ?Underlying dementia - supportive care Code status: DNR Dispo: Telemetry VTE: Heparin Lives with her daughter and is able to do ADL. Is in between PCP's at the moment as she was living in [place] with her daughter there. From previous notes it sounds like ideally they would like patient to come home with them despite decompensation over the last couple of weeks. Continued [facility] stay due to: home environment unsafe for pt Reviewed: Pt Seen/Exam by Me History alert in bed and coughing denies shortness of breath. Constitutional: denies: fever Respiratory: positive: cough Cardiovascular: denies chest pain Gastrointestinal/Abdominal: negative: abdominal pain General Appearance: no apparent distress Respiratory: no respiratory distress, rhonchi Cardiovascular: regular rate, rhythm Gastrointestinal: normal bowel sounds, non tender, soft Neurologic/Psychiatric: alert Skin Characteristics: warm/dry Assessment/Plan Resident Physician Supervision Note: I was present with Dr. Solomon in bedside. I verified the almaraz history and physical, reviewed labs and image studies, discussed the case with the resident and agree with the findings and care plan.
[2017-08-03] MEDS ORDERED: CEFTRIAXONE SOD INJ 1 GM in DEXTROSE 5% ADD-VANTAGE 50ML 50 ML IV SCH (16:00)
[2017-08-03] MEDS ORDERED: AZITHROMYCIN IV 500 MG in DEXTROSE 5% 250ML 250 ML IV SCH (18:00)
[2017-08-04] VITALS (9 sets, daily range): BP systolic 120–158; BP diastolic 74–84; PULSE 70–83; TEMP 36.5–37.1; O2SAT 92–99
[2017-08-04] MEDS: CHECK FENTANYL PATCH PLACEMENT SCH ×4 (00:16→23:55)
[2017-08-04 07:02] LABS: BASO % 0.4 %; BASO ABS # 0.03 K/uL (0-0.2); COMPLETE YES; EOS % 2.6 %; HEMATOCRIT 38.2 % (37-47); IG% 0.2 %; LYMPH % 34.4 %; LYMPH ABS # 2.77 K/uL (1.2-3.4); MEAN CELL VOLUME 91.6 fL (80-100); MEAN CORPUSCULAR HEMOGLOBIN 30.2 pg (25-34); MEAN PLATELET VOLUME 8.9 fL (7.4-10.4); MONO % 11.2 %; NEUT % 51.2 %; PLATELET COUNT 248 K/uL (130-400); RED BLOOD COUNT 4.17 M/uL (4.2-5.4); WHITE BLOOD COUNT 8.05 K/uL (4.8-10.8)
[2017-08-04 07:27] LABS: BUN/CREATININE RATIO 34.9 (10-20); CALCIUM 8.6 mg/dl (8.5-10.1); CREATININE 0.81 mg/dl (0.60-1.20); POTASSIUM 3.5 mmol/L (3.5-5.1)
[2017-08-04] MEDS: ALBUT/IPRATROP 3MG/0.5MG NEB 3 ML VIAL INH SCH ×4 (07:47→19:16)
[2017-08-04] MEDS: DOCUSATE SODIUM 100 MG CAP PO SCH (08:25)
[2017-08-04] MEDS: METOPROLOL SUCC 25MG EXT REL TAB PO SCH (08:26)
[2017-08-04] MEDS: MULTIVITAMIN TAB PO SCH (08:26)
[2017-08-04] MEDS: FELODIPINE 5 MG TABCR PO SCH (08:26)
[2017-08-04] MEDS: OXYBUTYNIN CHLORIDE 5 MG TABCR PO SCH (08:26)
[2017-08-04] MEDS: HEPARIN SOD 5000 UNIT/0.5 ML CARP SQ SCH ×2 (08:28→20:02)
--- NOTE | 2017-08-04 14:42 | DIAGNOSTIC IMAGING REPORT ---
KUB CLINICAL HISTORY: 87 years-old Female presenting with abdominal pain. TECHNIQUE: Single supine view of the abdomen was obtained. COMPARISON: CT from 01/10/2017. FINDINGS: Cholecystectomy clips noted. Splenic arterial calcification. Moderate stool burden in the left colon. No bowel obstruction. No gross pneumoperitoneum. Kyphoplasty changes noted at T11 and T12 and at every lumbar level. Total left hip arthroplasty. Osteopenia suspected. IMPRESSION: 1. Moderate stool burden in the left colon suggesting constipation. 2. No evidence of bowel obstruction. Electronically signed by: Chong Kumari M.D. 08/04/2017 2:41 PM Dictated Date/Time: 08/04/2017 2:39 PM
--- NOTE | 2017-08-04 15:05 | Family Medicine Progress Note ---
Progress Note Date of Service Aug 04, 2017. Subjective Pt evaluation today including: conversation w/ patient, physical exam, chart review, conversation w/ showroom consultant, review of inpatient medication list Pain: mild PO Intake: good Voiding: no voiding problems Patient no longer having any shortness of breath. She wakes up in the morning and feels as if there is something stuck in her throat. She usually coughs up a large amount of sputum in the morning. She has been having abdominal pain today. She is tolerating diet well, no diarrhea, no vomiting Constitutional: No fever, No chills Respiratory: + cough, + sputum, No shortness of breath Cardiovascular: No chest pain, No edema, No palpitations Abdomen: + pain, No nausea, No vomiting, No diarrhea, No constipation Female : No dysuria, No urinary frequency Medications Current Inpatient Medications Medications (Trade) Dose Ordered Sig/Tiffanie Route Start Time Stop Time Status Last Admin Dose Admin Acetaminophen (Tylenol Tab) 650 mg Q4H PRN PO 08/02/17 20:30 09/01/17 20:29 Al Hydrox/Mg Hydrox/Simethicone (Maalox Max Susp) 15 ml Q4H PRN PO 08/02/17 20:30 09/01/17 20:29 Magnesium Hydroxide (Milk Of Magnesia Susp) 30 ml Q6H PRN PO 08/02/17 20:30 09/01/17 20:29 Polyethylene (Miralax Powder Packet) 17 gm DAILY PRN PO 08/02/17 20:30 09/01/17 20:29 Ondansetron HCl (Zofran Inj) 4 mg Q6H PRN IV 08/02/17 20:30 09/01/17 20:29 Heparin Sodium (Porcine) (Heparin Sq 5000 Unit/0.5ml) 5,000 unit Q12H SQ 08/03/17 09:00 09/02/17 08:59 08/04/17 08:28 5,000 UNIT Docusate Sodium (coLACE CAP) 100 mg DAILY PO 08/03/17 09:00 09/02/17 08:59 08/04/17 08:25 100 MG Felodipine (Plendil Tabcr) 5 mg DAILY PO 08/03/17 09:00 09/02/17 08:59 08/04/17 08:26 5 MG Metoprolol Succinate (Toprol Xl Tab) 25 mg DAILY PO 08/03/17 09:00 09/02/17 08:59 08/04/17 08:26 25 MG Multivitamins (Multivitamin Tab) 1 tab DAILY PO 08/03/17 09:00 09/02/17 08:59 08/04/17 08:26 1 TAB Oxybutynin Chloride (Ditropan-Xl Tab) 5 mg DAILY PO 08/03/17 09:00 09/02/17 08:59 08/04/17 08:26 5 MG Miscellaneous Information (Check Fentanyl Patch Placement) 1 ea QS N/A 08/03/17 00:00 09/02/17 00:00 08/04/17 08:24 1 EA Fentanyl (Duragesic Patch) 25 mcg Q3D@2330 TD 08/02/17 23:30 08/16/17 23:29 08/02/17 23:39 25 MCG Miscellaneous (Fentanyl Patch Remove & Waste) 1 ea Q3D@2329 N/A 08/05/17 23:29 09/04/17 23:28 Albuterol/ Ipratropium (Duoneb) 3 ml QIDR INH 08/03/17 12:00 09/02/17 11:59 08/04/17 14:53 3 ML Objective Vital Signs Date Time Temp Pulse Resp B/P (MAP) Pulse Ox O2 Delivery O2 Flow Rate FiO2 08/04/17 11:09 77 14 92 Nasal Cannula 2.0 08/04/17 08:37 36.8 70 15 122/84 (97) 96 Nasal Cannula 2.0 08/04/17 08:00 94 Nasal Cannula 2.0 08/04/17 07:56 74 14 94 Nasal Cannula 2.0 08/04/17 00:01 Nasal Cannula 3.0 08/03/17 23:59 37.0 80 20 118/67 (84) 93 Nasal Cannula 2.0 08/03/17 23:05 90 Nasal Cannula 3.0 08/03/17 20:31 72 18 94 Room Air 08/03/17 16:00 92 Room Air 08/03/17 15:32 74 18 92 Room Air 08/03/17 15:06 36.4 73 18 108/68 (81) 92 Room Air Physical Exam General Appearance: WD/WN, no apparent distress Neck: no carotid bruits, trachea midline Respiratory/Chest: no respiratory distress, no accessory muscle use, + wheezing (mild bilateral wheeze in upper lobe) Cardiovascular: regular rate, rhythm, no edema, no murmur Abdomen: normal bowel sounds, soft, + tenderness (mild tenderness centrally), + hernia (patient with central abdominal wall hernia) Extremities: non-tender, no calf tenderness, normal capillary refill Neurologic/Psychiatric: alert, normal mood/affect, oriented x 3 Laboratory Results Results Past 24 Hours Test 08/04/17 06:33 Range/Units White Blood Count 8.05 4.8-10.8 K/uL Red Blood Count 4.17 4.2-5.4 M/uL Hemoglobin 12.6 12.0-16.0 g/dL Hematocrit 38.2 37-47 % Mean Corpuscular Volume 91.6 80-100 fL Mean Corpuscular Hemoglobin 30.2 25-34 pg Mean Corpuscular Hemoglobin Concent 33.0 32-36 g/dl Platelet Count 248 130-400 K/uL Mean Platelet Volume 8.9 7.4-10.4 fL Neutrophils (%) (Auto) 51.2 % Lymphocytes (%) (Auto) 34.4 % Monocytes (%) (Auto) 11.2 % Eosinophils (%) (Auto) 2.6 % Basophils (%) (Auto) 0.4 % Neutrophils # (Auto) 4.12 1.4-6.5 K/uL Lymphocytes # (Auto) 2.77 1.2-3.4 K/uL Monocytes # (Auto) 0.90 0.11-0.59 K/uL Eosinophils # (Auto) 0.21 0-0.5 K/uL Basophils # (Auto) 0.03 0-0.2 K/uL RDW Standard Deviation 45.4 36.4-46.3 fL RDW Coefficient of Variation 13.7 11.5-14.5 % Immature Granulocyte % (Auto) 0.2 % Immature Granulocyte # (Auto) 0.02 0.00-0.02 K/uL Sodium Level 142 136-145 mmol/L Potassium Level 3.5 3.5-5.1 mmol/L Chloride Level 108 98-107 mmol/L Carbon Dioxide Level 30 21-32 mmol/L Anion Gap 4.0 3-11 mmol/L Blood Urea Nitrogen 28 7-18 mg/dl Creatinine 0.81 0.60-1.20 mg/dl Est Creatinine Clear Calc Drug Dose 48.1 ml/min Estimated GFR () 74.6 Estimated GFR (Non- 64.4 BUN/Creatinine Ratio 34.9 10-20 Random Glucose 85 70-99 mg/dl Calcium Level 8.6 8.5-10.1 mg/dl Assessment and Plan 87 yo F with multiple co-morbidities who presented with confusion for the last couple weeks and was admitted due to increasing oxygen requirements Metabolic encephalopathy secondary to possible aspiration pneumonia and/or UTI - Now alert. Supportive care Possible aspiration event with hypoxia on admission. - Received Azithromycin and Prednisone in ED - stopped - Without WCC, afebrile and CXR without acute findings - Patient with mild wheeze bilaterally therefore will continue duonebs - Possible that patient had aspiration event. - Swallow eval without any obvious aspiration - Nocturnal pulse ox with <88% for 356 seconds, order home nocturnal oxygen. Should consider sleep study as outpatient Abdominal pain - AB Xray without any bowel obstruction however patient having mild, moderate constipation - She did have a large normal bm this morning - will continue to monitor Post nasal drip - trial of claritin PO Urinary Incontinence - continue oxybutynin - may need to consider increasing dose if patient continues to have urinary incontinence - will continue to monitor Potential UTI - Culture with no growth to date - Received Rocephin in ED Hypertension - Continue home calcium channel griselda Chronic bilateral knee pain - Continue home fentanyl patch - PT / OT evals ?Underlying dementia - supportive care Code status: DNR VTE: Heparin Lives with her daughter and is able to do ADL. Is in between PCP's at the moment as she was living in [place] with her daughter there. From previous notes it sounds like ideally they would like patient to come home with them despite decompensation over the last couple of weeks. Continued [facility] stay due to: home environment unsafe for pt Reviewed: Pt Seen/Exam by Me History no new concerns more alert today Constitutional: denies: fever Respiratory: negative: short of breath Cardiovascular: denies chest pain Gastrointestinal/Abdominal: negative: abdominal pain General Appearance: no apparent distress Respiratory: no respiratory distress, rhonchi (occasional) Cardiovascular: regular rate, rhythm Gastrointestinal: normal bowel sounds, non tender, soft Neurologic/Psychiatric: alert, other (oriented to place and person) Skin Characteristics: warm/dry Assessment/Plan Resident Physician Supervision Note: I was present with Dr. Solomon in bedside. I verified the almaraz history and physical, reviewed labs and image studies, discussed the case with the resident and agree with the findings and care plan.
[2017-08-04] MEDS ORDERED: LORATADINE 10 MG TAB PO ONE (15:30)
[2017-08-05] VITALS (9 sets, daily range): BP systolic 113–129; BP diastolic 73–76; PULSE 61–88; TEMP 36.7–37; O2SAT 91–97
[2017-08-05] MEDS: ALBUT/IPRATROP 3MG/0.5MG NEB 3 ML VIAL INH SCH ×4 (07:22→19:14)
[2017-08-05 07:52] LABS: BASO % 0.6 %; BASO ABS # 0.04 K/uL (0-0.2); COMPLETE YES; EOS % 3.9 %; HEMATOCRIT 41.7 % (37-47); IG% 0.2 %; LYMPH % 29.1 %; LYMPH ABS # 1.93 K/uL (1.2-3.4); MEAN CELL VOLUME 93.7 fL (80-100); MEAN CORPUSCULAR HEMOGLOBIN 29.4 pg (25-34); MEAN CORPUSCULAR HGB CONC 31.4 g/dl (32-36); MONO % 14.2 %; PLATELET COUNT 272 K/uL (130-400); RED BLOOD COUNT 4.45 M/uL (4.2-5.4); WHITE BLOOD COUNT 6.63 K/uL (4.8-10.8)
[2017-08-05 08:15] LABS: BUN/CREATININE RATIO 28.7 (10-20); CALCIUM 8.5 mg/dl (8.5-10.1); CREATININE 0.69 mg/dl (0.60-1.20); POTASSIUM 3.7 mmol/L (3.5-5.1)
[2017-08-05] MEDS: OXYBUTYNIN CHLORIDE 5 MG TABCR PO SCH (08:27)
[2017-08-05] MEDS: METOPROLOL SUCC 25MG EXT REL TAB PO SCH (08:27)
[2017-08-05] MEDS: DOCUSATE SODIUM 100 MG CAP PO SCH (08:27)
[2017-08-05] MEDS: LORATADINE 10 MG TAB PO SCH (08:27)
[2017-08-05] MEDS: FELODIPINE 5 MG TABCR PO SCH (08:27)
[2017-08-05] MEDS: MULTIVITAMIN TAB PO SCH (08:27)
[2017-08-05] MEDS: CHECK FENTANYL PATCH PLACEMENT SCH ×2 (08:28→17:11)
[2017-08-05] MEDS: HEPARIN SOD 5000 UNIT/0.5 ML CARP SQ SCH ×2 (08:32→21:11)
[2017-08-05] MEDS ORDERED: SOD PHOSPHATE/SOD BIPHOSPHATE ENEMA 132 ML BTL PR ONE (09:05)
[2017-08-05] MEDS ORDERED: NURSING VERBAL MED ORDER ONE (09:45)
[2017-08-05] MEDS ORDERED: OPTIRAY 320 IV PRN ×2 (14:15→16:30)
--- NOTE | 2017-08-05 16:36 | Family Medicine Progress Note ---
Progress Note Date of Service Aug 05, 2017. Subjective Pt evaluation today including: conversation w/ patient, physical exam, chart review, conversation w/ telecom sales consultant, review of inpatient medication list Pain: mild PO Intake: good Voiding: no voiding problems Patient still having abdominal pain Had a large bm this morning, tolerating diet well, KUB showed constipation Constitutional: No fever, No chills, No sweats Respiratory: No cough, No sputum, No shortness of breath Cardiovascular: No chest pain, No edema, No palpitations Abdomen: + pain, No nausea, No vomiting, No diarrhea, No constipation Female : No dysuria, No urinary frequency Heme: No abnormal bleeding/bruising Medications Current Inpatient Medications Medications (Trade) Dose Ordered Sig/Tiffanie Route Start Time Stop Time Status Last Admin Dose Admin Acetaminophen (Tylenol Tab) 650 mg Q4H PRN PO 08/02/17 20:30 09/01/17 20:29 Al Hydrox/Mg Hydrox/Simethicone (Maalox Max Susp) 15 ml Q4H PRN PO 08/02/17 20:30 09/01/17 20:29 Magnesium Hydroxide (Milk Of Magnesia Susp) 30 ml Q6H PRN PO 08/02/17 20:30 09/01/17 20:29 08/04/17 15:47 30 ML Polyethylene (Miralax Powder Packet) 17 gm DAILY PRN PO 08/02/17 20:30 09/01/17 20:29 Ondansetron HCl (Zofran Inj) 4 mg Q6H PRN IV 08/02/17 20:30 09/01/17 20:29 Heparin Sodium (Porcine) (Heparin Sq 5000 Unit/0.5ml) 5,000 unit Q12H SQ 08/03/17 09:00 09/02/17 08:59 08/05/17 08:32 5,000 UNIT Docusate Sodium (coLACE CAP) 100 mg DAILY PO 08/03/17 09:00 09/02/17 08:59 08/05/17 08:27 100 MG Felodipine (Plendil Tabcr) 5 mg DAILY PO 08/03/17 09:00 09/02/17 08:59 08/05/17 08:27 5 MG Metoprolol Succinate (Toprol Xl Tab) 25 mg DAILY PO 08/03/17 09:00 09/02/17 08:59 08/05/17 08:27 25 MG Multivitamins (Multivitamin Tab) 1 tab DAILY PO 08/03/17 09:00 09/02/17 08:59 08/05/17 08:27 1 TAB Oxybutynin Chloride (Ditropan-Xl Tab) 5 mg DAILY PO 08/03/17 09:00 09/02/17 08:59 08/05/17 08:27 5 MG Miscellaneous Information (Check Fentanyl Patch Placement) 1 ea QS N/A 08/03/17 00:00 09/02/17 00:00 08/05/17 08:28 1 EA Fentanyl (Duragesic Patch) 25 mcg Q3D@2330 TD 08/02/17 23:30 08/16/17 23:29 08/02/17 23:39 25 MCG Miscellaneous (Fentanyl Patch Remove & Waste) 1 ea Q3D@2329 N/A 08/05/17 23:29 09/04/17 23:28 Albuterol/ Ipratropium (Duoneb) 3 ml QIDR INH 08/03/17 12:00 09/02/17 11:59 08/05/17 14:35 3 ML Loratadine (Claritin Tab) 10 mg QAM PO 08/05/17 09:00 09/04/17 08:59 08/05/17 08:27 10 MG Ioversol (Optiray 320) 111 ml UD PRN IV 08/05/17 14:15 08/09/17 14:14 Ioversol (Optiray 320) 111 ml UD PRN IV 08/05/17 16:30 08/09/17 16:29 Objective Vital Signs Date Time Temp Pulse Resp B/P (MAP) Pulse Ox O2 Delivery O2 Flow Rate FiO2 08/05/17 14:55 36.7 88 20 113/73 (86) 94 Nasal Cannula 2.0 08/05/17 14:35 87 14 94 Nasal Cannula 2.0 08/05/17 11:31 61 14 97 Nasal Cannula 2.0 08/05/17 08:03 37.0 61 18 125/76 (92) 97 Room Air 08/05/17 08:00 97 Nasal Cannula 2.0 08/05/17 07:22 69 14 91 Nasal Cannula 2.0 08/05/17 00:00 Nasal Cannula 2.0 08/04/17 23:13 36.5 80 20 158/82 (107) 92 Nasal Cannula 2.0 08/04/17 19:19 71 14 94 Nasal Cannula 2.0 Physical Exam General Appearance: WD/WN, no apparent distress ENT: pharynx normal, + pertinent finding (hard of hearing) Respiratory/Chest: no respiratory distress, no accessory muscle use, + wheezing (mild wheeze in upper lobes) Cardiovascular: regular rate, rhythm, no edema, no murmur Abdomen: normal bowel sounds, soft, + tenderness (very tender in central abdominal area) Extremities: non-tender, no pedal edema, no calf tenderness, normal capillary refill Neurologic/Psychiatric: alert, normal mood/affect, oriented x 3 Skin: normal color, warm/dry, no rash Laboratory Results Results Past 24 Hours Test 08/05/17 07:29 Range/Units White Blood Count 6.63 4.8-10.8 K/uL Red Blood Count 4.45 4.2-5.4 M/uL Hemoglobin 13.1 12.0-16.0 g/dL Hematocrit 41.7 37-47 % Mean Corpuscular Volume 93.7 80-100 fL Mean Corpuscular Hemoglobin 29.4 25-34 pg Mean Corpuscular Hemoglobin Concent 31.4 32-36 g/dl Platelet Count 272 130-400 K/uL Mean Platelet Volume 9.0 7.4-10.4 fL Neutrophils (%) (Auto) 52.0 % Lymphocytes (%) (Auto) 29.1 % Monocytes (%) (Auto) 14.2 % Eosinophils (%) (Auto) 3.9 % Basophils (%) (Auto) 0.6 % Neutrophils # (Auto) 3.45 1.4-6.5 K/uL Lymphocytes # (Auto) 1.93 1.2-3.4 K/uL Monocytes # (Auto) 0.94 0.11-0.59 K/uL Eosinophils # (Auto) 0.26 0-0.5 K/uL Basophils # (Auto) 0.04 0-0.2 K/uL RDW Standard Deviation 47.7 36.4-46.3 fL RDW Coefficient of Variation 13.9 11.5-14.5 % Immature Granulocyte % (Auto) 0.2 % Immature Granulocyte # (Auto) 0.01 0.00-0.02 K/uL Sodium Level 143 136-145 mmol/L Potassium Level 3.7 3.5-5.1 mmol/L Chloride Level 107 98-107 mmol/L Carbon Dioxide Level 33 21-32 mmol/L Anion Gap 3.0 3-11 mmol/L Blood Urea Nitrogen 20 7-18 mg/dl Creatinine 0.69 0.60-1.20 mg/dl Est Creatinine Clear Calc Drug Dose 56.5 ml/min Estimated GFR () 89.5 Estimated GFR (Non- 77.2 BUN/Creatinine Ratio 28.7 10-20 Random Glucose 90 70-99 mg/dl Calcium Level 8.5 8.5-10.1 mg/dl Assessment and Plan 87 yo F with multiple co-morbidities who presented with confusion for the last couple weeks and was admitted due to increasing oxygen requirements Metabolic encephalopathy secondary to possible aspiration pneumonia and/or UTI - Now alert. Supportive care Possible aspiration event with hypoxia on admission. - Received Azithromycin and Prednisone in ED - stopped - Without WCC, afebrile and CXR without acute findings - Patient with mild wheeze bilaterally therefore will continue duonebs - Possible that patient had aspiration event. - Swallow eval without any obvious aspiration - Nocturnal pulse ox with <88% for 356 seconds, order home nocturnal oxygen. Should consider sleep study as outpatient Abdominal pain - AB Xray without any bowel obstruction however patient having mild, moderate constipation - She did have a large normal bm this morning - Pain persisting - CT of abdomen and pelvis for further assessment Post nasal drip - trial of claritin PO Urinary Incontinence - continue oxybutynin - may need to consider increasing dose if patient continues to have urinary incontinence - will continue to monitor Potential UTI - Culture with no growth to date - Received Rocephin in ED Hypertension - Continue home calcium channel griselda Chronic bilateral knee pain - Continue home fentanyl patch - PT / OT evals ?Underlying dementia - supportive care Code status: DNR VTE: Heparin Case management spoke to patients daughter this morning and it was decided that the patient would need to go to [facility] for rehab before going home with daughter. Daughter has around the clock care at home for her mother. Still awaiting approval from [facility] for discharge. Beds are full at [facility] currently Continued [facility] stay due to: ambulation difficulties, home environment unsafe for pt Reviewed: Pt Seen/Exam by Me History continues to complain of having abdominal pain Constitutional: denies: fever Respiratory: negative: short of breath Cardiovascular: denies chest pain Gastrointestinal/Abdominal: positive: abdominal pain General Appearance: no apparent distress Respiratory: lungs clear, no respiratory distress Cardiovascular: regular rate, rhythm Gastrointestinal: normal bowel sounds, soft, tenderness (diffuse generalized) Neurologic/Psychiatric: alert, other (oriented to place and person) Skin Characteristics: warm/dry Assessment/Plan Resident Physician Supervision Note: I was present with Dr. Solomon in bedside. I verified the almaraz history and physical, reviewed labs and image studies, discussed the case with the resident and agree with the findings and care plan.
--- NOTE | 2017-08-05 17:32 | DIAGNOSTIC IMAGING REPORT ---
ABD/PELVIS IV AND ORAL CONT CLINICAL HISTORY: 87 years-old Female presenting with Abdominal pain. TECHNIQUE: Multidetector CT of the abdomen and pelvis was performed after the administration of oral and intravenous contrast. IV contrast: 118 mL of Optiray 320. A dose lowering technique was used consistent with the principles of ALARA (as low as reasonably achievable). COMPARISON: 01/10/2017. CT DOSE (mGy.cm): The estimated cumulative dose is 1039.28 mGy.cm. FINDINGS: Box Stamper topogram: Multiple levels demonstrate vertebroplasty changes. Total left hip arthroplasty. Cholecystectomy clips. Lung bases: Bibasilar dependent consolidation and bandlike opacities, unchanged from prior. Heart top normal in size. Coronary artery calcification. Tortuosity of the aorta. Trace left effusion may be present. No pericardial effusion. The esophagus contains oral contrast suggesting reflux. Liver: Normal morphology. No liver lesion. Patent hepatic vasculature. Biliary: No intrahepatic or extrahepatic biliary ductal dilatation. Gallbladder surgically absent. Pancreas: Severe parenchymal atrophy. Spleen: Normal. Adrenal glands: Normal. Kidneys and ureters: Punctate nonobstructing renal calculus at the left lower pole suggested (series 3 image 190). No other renal calculus. Well-defined subcentimeter hypodensity in the posterior aspect of the interpolar region of the right kidney likely simple cyst. No hydronephrosis. Calcification in the region of the proximal to mid right ureter (series 3 image 215), increased in size from prior. This is indeterminate for ureteral calculus. No ureteral obstruction. Evaluation of the distal ureters limited due to beam hardening artifact resulting from left hip arthroplasty. Bladder: Incompletely evaluated secondary to underdistention. Pelvic organs: Uterus surgically absent. No adnexal masses. Ovaries contain few foci of calcification. Bowel: Mild apparent wall thickening of the anus and anorectal junction, nonspecific. Moderate stool burden in the transverse colon. Normal appendix. No bowel obstruction. Gastroesophageal reflux suggested by the presence of oral contrast within the esophagus. Peritoneal cavity: No free fluid or intraperitoneal gas. Vasculature: Atherosclerosis and tortuosity of the abdominal aorta, which is normal in caliber. IVC patent. Lymph nodes: No enlarged lymph nodes in the abdomen or pelvis. Abdominal wall: Diastasis of the rectus abdominis. Musculoskeletal: Left total hip arthroplasty with regional beam hardening artifact. No apparent hardware complication. Degenerative changes of the sacroiliac joints and pubic symphysis. Multiple levels demonstrate vertebroplasty changes. Anterior wedging deformity of T10 and height loss of T9. These are not included within the [id number] on prior exam. IMPRESSION: 1. No acute intra-abdominal pathology. 2. Punctate nonobstructing left renal calculus. Calcification in the region of the proximal to mid right ureter, which was present on prior exam and is increased in size. This is indeterminate. No hydronephrosis or hydroureter results. 3. Gastroesophageal reflux. 4. Extensive bibasilar scarring or atelectasis, unchanged. 5. Trace left pleural effusion. 6. Compression deformity of T10 and T9, age-indeterminate, with multilevel kyphoplasty changes. Electronically signed by: Chong Kumari M.D. 08/05/2017 5:30 PM Dictated Date/Time: 08/05/2017 5:17 PM
[2017-08-05] MEDS ORDERED: FENTANYL PATCH REMOVE & WASTE SCH (23:29)
[2017-08-06] VITALS (12 sets, daily range): BP systolic 119–158; BP diastolic 78–96; PULSE 66–85; TEMP 36.6–36.8; O2SAT 89–96
[2017-08-06] MEDS: CHECK FENTANYL PATCH PLACEMENT SCH ×3 (00:04→17:19)
[2017-08-06] MEDS: FENTANYL 25 MCG/HR TDSY TD SCH (00:04)
[2017-08-06] MEDS: ALBUT/IPRATROP 3MG/0.5MG NEB 3 ML VIAL INH SCH ×4 (07:06→19:49)
[2017-08-06] MEDS: FELODIPINE 5 MG TABCR PO SCH (08:48)
[2017-08-06] MEDS: MULTIVITAMIN TAB PO SCH (08:48)
[2017-08-06] MEDS: DOCUSATE SODIUM 100 MG CAP PO SCH (08:48)
[2017-08-06] MEDS: OXYBUTYNIN CHLORIDE 5 MG TABCR PO SCH (08:50)
[2017-08-06] MEDS: LORATADINE 10 MG TAB PO SCH (08:50)
[2017-08-06] MEDS: METOPROLOL SUCC 25MG EXT REL TAB PO SCH (08:51)
[2017-08-06] MEDS: HEPARIN SOD 5000 UNIT/0.5 ML CARP SQ SCH ×2 (08:58→20:49)
--- NOTE | 2017-08-06 11:22 | Family Medicine Progress Note ---
Progress Note Date of Service Aug 06, 2017. Subjective Pt evaluation today including: conversation w/ patient, physical exam, chart review, lab review, conversation w/ document management consultant, review of inpatient medication list Pain: mild PO Intake: good Voiding: no voiding problems Patient still having abdominal pain this morning Is tolerating diet well, no bm this morning No fevers or chills Imaging shows that ab pain likely to be radicular pain from T9-T10 deformity Case management informed me that there are no beds available at [facility] therefore she will not be discharged today Constitutional: No fever, No chills, No sweats Respiratory: No cough, No sputum, No shortness of breath Cardiovascular: No chest pain, No edema, No palpitations Abdomen: + pain, No nausea, No vomiting, No diarrhea, No constipation Female : No dysuria, No urinary frequency Medications Current Inpatient Medications Medications (Trade) Dose Ordered Sig/Tiffanie Route Start Time Stop Time Status Last Admin Dose Admin Acetaminophen (Tylenol Tab) 650 mg Q4H PRN PO 08/02/17 20:30 09/01/17 20:29 Al Hydrox/Mg Hydrox/Simethicone (Maalox Max Susp) 15 ml Q4H PRN PO 08/02/17 20:30 09/01/17 20:29 Magnesium Hydroxide (Milk Of Magnesia Susp) 30 ml Q6H PRN PO 08/02/17 20:30 09/01/17 20:29 08/04/17 15:47 30 ML Polyethylene (Miralax Powder Packet) 17 gm DAILY PRN PO 08/02/17 20:30 09/01/17 20:29 Ondansetron HCl (Zofran Inj) 4 mg Q6H PRN IV 08/02/17 20:30 09/01/17 20:29 Heparin Sodium (Porcine) (Heparin Sq 5000 Unit/0.5ml) 5,000 unit Q12H SQ 08/03/17 09:00 09/02/17 08:59 08/06/17 08:58 5,000 UNIT Docusate Sodium (coLACE CAP) 100 mg DAILY PO 08/03/17 09:00 09/02/17 08:59 08/06/17 08:48 100 MG Felodipine (Plendil Tabcr) 5 mg DAILY PO 08/03/17 09:00 09/02/17 08:59 08/06/17 08:48 5 MG Metoprolol Succinate (Toprol Xl Tab) 25 mg DAILY PO 08/03/17 09:00 09/02/17 08:59 08/06/17 08:51 25 MG Multivitamins (Multivitamin Tab) 1 tab DAILY PO 08/03/17 09:00 09/02/17 08:59 08/06/17 08:48 1 TAB Oxybutynin Chloride (Ditropan-Xl Tab) 5 mg DAILY PO 08/03/17 09:00 09/02/17 08:59 08/06/17 08:50 5 MG Miscellaneous Information (Check Fentanyl Patch Placement) 1 ea QS N/A 08/03/17 00:00 09/02/17 00:00 08/06/17 08:13 1 EA Fentanyl (Duragesic Patch) 25 mcg Q3D@2330 TD 08/02/17 23:30 08/16/17 23:29 08/06/17 00:04 25 MCG Miscellaneous (Fentanyl Patch Remove & Waste) 1 ea Q3D@2329 N/A 08/05/17 23:29 09/04/17 23:28 08/05/17 23:29 1 EA Albuterol/ Ipratropium (Duoneb) 3 ml QIDR INH 08/03/17 12:00 09/02/17 11:59 08/06/17 11:14 3 ML Loratadine (Claritin Tab) 10 mg QAM PO 08/05/17 09:00 09/04/17 08:59 08/06/17 08:50 10 MG Ioversol (Optiray 320) 111 ml UD PRN IV 08/05/17 14:15 08/09/17 14:14 Ioversol (Optiray 320) 111 ml UD PRN IV 08/05/17 16:30 08/09/17 16:29 Objective Vital Signs Date Time Temp Pulse Resp B/P (MAP) Pulse Ox O2 Delivery O2 Flow Rate FiO2 08/06/17 11:15 67 16 89 Room Air 08/06/17 08:10 36.6 66 18 150/96 (114) 92 Nasal Cannula 2.0 08/06/17 08:00 92 Nasal Cannula 2.0 08/06/17 07:06 67 16 95 Nasal Cannula 2.0 08/06/17 00:21 36.7 75 22 157/96 (116) 95 Nasal Cannula 2.0 08/06/17 00:00 Nasal Cannula 2.0 08/05/17 19:14 82 14 95 Nasal Cannula 2.0 08/05/17 16:00 94 Nasal Cannula 2.0 08/05/17 14:55 36.7 88 20 113/73 (86) 94 Nasal Cannula 2.0 08/05/17 14:35 87 14 94 Nasal Cannula 2.0 08/05/17 11:31 61 14 97 Nasal Cannula 2.0 08/05/17 11:23 77 95 Physical Exam Notes: General Appearance: WD/WN, no apparent distress ENT: pharynx normal, + pertinent finding (hard of hearing) Respiratory/Chest: no respiratory distress, no accessory muscle use, Cardiovascular: regular rate, rhythm, no edema, no murmur Abdomen: normal bowel sounds, soft, + tenderness (very tender in central abdominal area) Extremities: non-tender, no pedal edema, no calf tenderness, normal capillary refill Neurologic/Psychiatric: alert, normal mood/affect, oriented x 3 Skin: normal color, warm/dry, no rash Assessment and Plan 87 yo F with multiple co-morbidities who presented with confusion for the last couple weeks and was admitted due to increasing oxygen requirements Metabolic encephalopathy secondary to possible aspiration pneumonia and associated hypoxia - Now alert. Supportive care Possible aspiration event with hypoxia on admission. - Received Azithromycin and Prednisone in ED - stopped - Without WCC, afebrile and CXR without acute findings - Patient with mild wheeze bilaterally therefore will continue duonebs - Possible that patient had aspiration event. - Swallow eval without any obvious aspiration - Nocturnal pulse ox with <88% for 356 seconds, order home nocturnal oxygen. Should consider sleep study as outpatient Abdominal pain - AB Xray without any bowel obstruction however patient having mild, moderate constipation - She did have a large normal bm this morning - Ct abdomen/pelvis without any acute findings. - T9-T10 compression fracture likely causing radicular pain is likely etiology of abdominal pain Post nasal drip - trial of claritin PO Urinary Incontinence - continue oxybutynin - may need to consider increasing dose if patient continues to have urinary incontinence - will continue to monitor Potential UTI - Culture with no growth - Received Rocephin in ED Hypertension - Continue home calcium channel griselda Chronic bilateral knee pain - Continue home fentanyl patch - PT / OT evals ?Underlying dementia - supportive care Code status: DNR VTE: Heparin Case management spoke to patients daughter this morning and it was decided that the patient would need to go to [facility] for rehab before going home with daughter. Daughter has around the clock care at home for her mother. Spoke to case management this morning and there are no beds available for patient to go to [facility] today. They said it will likely be Wednesday or Wednesday that she will be able to go Reviewed: Pt Seen/Exam by Me History continues to have abdominal pain Constitutional: denies: fever Respiratory: negative: short of breath Cardiovascular: denies chest pain General Appearance: no apparent distress (sitting in chair) Respiratory: lungs clear, no respiratory distress Cardiovascular: regular rate, rhythm Gastrointestinal: soft Neurologic/Psychiatric: alert, oriented x 3 Skin Characteristics: warm/dry Assessment/Plan Resident Physician Supervision Note: I was present with Dr. Solomon in bedside. I verified the almaraz history and physical, reviewed labs and image studies, discussed the case with the resident and agree with the findings and care plan.
[2017-08-07] VITALS (9 sets, daily range): BP systolic 128–141; BP diastolic 77–87; PULSE 73–90; TEMP 36.4–36.8; O2SAT 93–96
[2017-08-07] MEDS: ALBUT/IPRATROP 3MG/0.5MG NEB 3 ML VIAL INH SCH ×4 (07:05→19:32)
--- NOTE | 2017-08-07 08:58 | Family Medicine Progress Note ---
Progress Note Date of Service Aug 07, 2017. Subjective Pt evaluation today including: conversation w/ patient, physical exam, chart review, lab review, review of studies, review of inpatient medication list Pain: 3/10 abdominal pain Voiding: no voiding problems Chronic cough for months ongoing. Having 3/10 right upper quadrant pain ( reports same pain as when she came in). All Other Systems: Reviewed and Negative Medications Current Inpatient Medications Medications (Trade) Dose Ordered Sig/Tiffanie Route Start Time Stop Time Status Last Admin Dose Admin Acetaminophen (Tylenol Tab) 650 mg Q4H PRN PO 08/02/17 20:30 09/01/17 20:29 Al Hydrox/Mg Hydrox/Simethicone (Maalox Max Susp) 15 ml Q4H PRN PO 08/02/17 20:30 09/01/17 20:29 Magnesium Hydroxide (Milk Of Magnesia Susp) 30 ml Q6H PRN PO 08/02/17 20:30 09/01/17 20:29 08/04/17 15:47 30 ML Polyethylene (Miralax Powder Packet) 17 gm DAILY PRN PO 08/02/17 20:30 09/01/17 20:29 Ondansetron HCl (Zofran Inj) 4 mg Q6H PRN IV 08/02/17 20:30 09/01/17 20:29 Heparin Sodium (Porcine) (Heparin Sq 5000 Unit/0.5ml) 5,000 unit Q12H SQ 08/03/17 09:00 09/02/17 08:59 08/06/17 20:49 5,000 UNIT Docusate Sodium (coLACE CAP) 100 mg DAILY PO 08/03/17 09:00 09/02/17 08:59 08/06/17 08:48 100 MG Felodipine (Plendil Tabcr) 5 mg DAILY PO 08/03/17 09:00 09/02/17 08:59 08/06/17 08:48 5 MG Metoprolol Succinate (Toprol Xl Tab) 25 mg DAILY PO 08/03/17 09:00 09/02/17 08:59 08/06/17 08:51 25 MG Multivitamins (Multivitamin Tab) 1 tab DAILY PO 08/03/17 09:00 09/02/17 08:59 08/06/17 08:48 1 TAB Oxybutynin Chloride (Ditropan-Xl Tab) 5 mg DAILY PO 08/03/17 09:00 09/02/17 08:59 08/06/17 08:50 5 MG Miscellaneous Information (Check Fentanyl Patch Placement) 1 ea QS N/A 08/03/17 00:00 09/02/17 00:00 08/07/17 00:00 1 EA Fentanyl (Duragesic Patch) 25 mcg Q3D@2330 TD 08/02/17 23:30 08/16/17 23:29 08/06/17 00:04 25 MCG Miscellaneous (Fentanyl Patch Remove & Waste) 1 ea Q3D@2329 N/A 08/05/17 23:29 09/04/17 23:28 08/05/17 23:29 1 EA Albuterol/ Ipratropium (Duoneb) 3 ml QIDR INH 08/03/17 12:00 09/02/17 11:59 08/07/17 07:05 3 ML Loratadine (Claritin Tab) 10 mg QAM PO 08/05/17 09:00 09/04/17 08:59 08/06/17 08:50 10 MG Ioversol (Optiray 320) 111 ml UD PRN IV 08/05/17 14:15 08/09/17 14:14 Ioversol (Optiray 320) 111 ml UD PRN IV 08/05/17 16:30 08/09/17 16:29 Objective Vital Signs Date Time Temp Pulse Resp B/P (MAP) Pulse Ox O2 Delivery O2 Flow Rate FiO2 08/07/17 07:33 36.4 77 18 141/87 (105) 93 Room Air 08/07/17 07:05 73 16 93 Room Air 08/07/17 00:25 Room Air 08/06/17 23:57 36.8 79 16 158/89 (112) 92 Room Air 08/06/17 20:53 94 Room Air 08/06/17 19:51 82 16 95 Nasal Cannula 1.0 08/06/17 16:00 91 Nasal Cannula 2.0 08/06/17 15:48 78 16 96 Nasal Cannula 2.0 08/06/17 15:13 36.7 85 18 119/78 (92) 91 Nasal Cannula 2.0 08/06/17 15:06 91 08/06/17 11:15 67 16 89 Room Air Physical Exam General Appearance: no apparent distress, + obese Eyes: + pertinent finding (right pupil smaller than left (previous cataract surgery)) ENT: + pertinent finding (dry mucus membranes (mouth breathing)) Respiratory/Chest: chest non-tender, + wheezing (end expiratory) Cardiovascular: regular rate, rhythm, no murmur Abdomen: normal bowel sounds, soft, + tenderness (RUQ on light palpation without rebound or guarding) Extremities: no pedal edema, no calf tenderness Neurologic/Psychiatric: no motor/sensory deficits (grossly), alert, oriented x 3 Skin: normal color, warm/dry, no rash Assessment and Plan 87 yo F with multiple co-morbidities who presented with confusion for the last couple weeks and was admitted due to increasing oxygen requirements Metabolic encephalopathy secondary to possible aspiration pneumonitis and associated hypoxia +/- opiate medications - Now alert. Supportive care Suspected aspiration pneumonitis with hypoxia on admission. - Received Azithromycin and Prednisone in ED - stopped - Without WCC, afebrile and CXR without acute findings - Patient with mild wheeze bilaterally therefore will continue duonebs - Swallow eval without any obvious aspiration - Nocturnal pulse ox with <88% for 356 seconds, order home nocturnal oxygen. Should consider sleep study as outpatient Abdominal pain - AB Xray without any bowel obstruction however patient having mild, moderate constipation - Ct abdomen/pelvis without any acute findings. - T9-T10 compression fracture likely causing radicular pain is likely etiology of abdominal pain - reassured patient multiple times no need for colonoscopy however she appears transfixed on this. Post nasal drip - chronic cough - trial of claritin PO Urinary Incontinence - continue oxybutynin - monitor Hypertension - Will stop felodipine as may be contributing to GERD - Increase metoprolol XL 25 mg to 50mg GERD - on CT, may be contributing towards her cough - start on ranitidine 150gm BID - stop felodipine as this may be making this worse. Chronic bilateral knee pain - Continue home fentanyl patch - PT / OT evals Likely underlying dementia - at risk of sundowning/delirium - supportive care VTE prophylaxis - heparin 5000 units Q12H Code status DNR Disposition - medically stable for discharge. [facility] Resident Tracking Resident Involvement: Resident Care Provided Care Provided: Adult Hospital Medicine Reviewed: Pt Seen/Exam by Me History comfortable in bed. denies any concerns Constitutional: denies: fever Respiratory: negative: short of breath Cardiovascular: denies chest pain General Appearance: no apparent distress Respiratory: lungs clear, no respiratory distress Cardiovascular: regular rate, rhythm Gastrointestinal: normal bowel sounds, non tender, soft Neurologic/Psychiatric: alert, oriented x 3 Skin Characteristics: warm/dry Assessment/Plan Resident Physician Supervision Note: I was present with Dr. Mazariegos in bedside. I verified the almaraz history and physical, reviewed labs and image studies, discussed the case with the resident and agree with the findings and care plan.
[2017-08-07] MEDS: CHECK FENTANYL PATCH PLACEMENT SCH ×3 (09:06→16:00)
[2017-08-07] MEDS: OXYBUTYNIN CHLORIDE 5 MG TABCR PO SCH (09:07)
[2017-08-07] MEDS: DOCUSATE SODIUM 100 MG CAP PO SCH (09:07)
[2017-08-07] MEDS: LORATADINE 10 MG TAB PO SCH (09:07)
[2017-08-07] MEDS: MULTIVITAMIN TAB PO SCH (09:08)
[2017-08-07] MEDS: HEPARIN SOD 5000 UNIT/0.5 ML CARP SQ SCH ×2 (09:09→20:49)
[2017-08-07] MEDS: METOPROLOL SUCC 25MG EXT REL TAB PO SCH (09:10)
[2017-08-07] MEDS: FELODIPINE 5 MG TABCR PO SCH (09:10)
[2017-08-07] MEDS ORDERED: RANITIDINE HCL 150 MG TAB PO ONE (15:56)
[2017-08-07] MEDS: RANITIDINE HCL 150 MG TAB PO SCH (20:46)
[2017-08-08] MEDS: CHECK FENTANYL PATCH PLACEMENT SCH ×2 (00:28→08:09)
[2017-08-08 01:23] VITALS: O2SAT 94
[2017-08-08 06:20] LABS: BASO % 0.6 %; BASO ABS # 0.04 K/uL (0-0.2); COMPLETE YES; EOS % 8.2 %; HEMATOCRIT 45.5 % (37-47); IG% 0.9 %; LYMPH % 27.6 %; LYMPH ABS # 1.75 K/uL (1.2-3.4); MEAN CELL VOLUME 92.9 fL (80-100); MEAN CORPUSCULAR HEMOGLOBIN 28.6 pg (25-34); MEAN CORPUSCULAR HGB CONC 30.8 g/dl (32-36); MEAN PLATELET VOLUME 8.7 fL (7.4-10.4); MONO % 13.6 %; NEUT % 49.1 %; PLATELET COUNT 280 K/uL (130-400); WHITE BLOOD COUNT 6.34 K/uL (4.8-10.8)
[2017-08-08 06:52] LABS: BUN/CREATININE RATIO 19.6 (10-20); CALCIUM 8.6 mg/dl (8.5-10.1); CREATININE 0.82 mg/dl (0.60-1.20); POTASSIUM 3.9 mmol/L (3.5-5.1)
[2017-08-08] MEDS: ALBUT/IPRATROP 3MG/0.5MG NEB 3 ML VIAL INH SCH ×2 (07:10→11:38)
[2017-08-08 07:12] VITALS: PULSE 79; O2SAT 94
[2017-08-08 07:21] VITALS: BP 150/95; PULSE 77; TEMP 36.7; O2SAT 94
[2017-08-08] MEDS: LORATADINE 10 MG TAB PO SCH (08:10)
[2017-08-08] MEDS: OXYBUTYNIN CHLORIDE 5 MG TABCR PO SCH (08:10)
[2017-08-08] MEDS: DOCUSATE SODIUM 100 MG CAP PO SCH (08:10)
[2017-08-08] MEDS: MULTIVITAMIN TAB PO SCH (08:11)
[2017-08-08] MEDS: RANITIDINE HCL 150 MG TAB PO SCH (08:12)
[2017-08-08] MEDS: HEPARIN SOD 5000 UNIT/0.5 ML CARP SQ SCH (08:15)
[2017-08-08] MEDS ORDERED: METOPROLOL SUCC 50MG EXT REL TAB PO SCH (09:00)
[2017-08-08 09:24] VITALS: O2SAT 94
[2017-08-08 09:34] VITALS: BP 150/95; PULSE 77; TEMP 36.7; O2SAT 94
--- NOTE | 2017-08-08 09:49 | DIAGNOSTIC IMAGING REPORT ---
VENOUS DOPPLER LWR EXT BILA HISTORY: Pain bilateral calf pain COMPARISON STUDY: None. FINDINGS: There is normal compressibility, flow, and augmentation within the bilateral lower extremity deep venous systems. IMPRESSION: No DVT within the right or left lower extremity. The above report was generated using voice recognition software. It may contain grammatical, syntax or spelling errors. Electronically signed by: Camden Ch M.D. 08/08/2017 9:48 AM Dictated Date/Time: 08/08/2017 9:47 AM
[2017-08-08] MEDS ORDERED: TPRSR50 PO (10:41)
[2017-08-08] MEDS ORDERED: ZNT150 PO (10:41)
[2017-08-08] MEDS ORDERED: FNTTP25 TOP ×2 (10:41→11:22)
[2017-08-08] MEDS ORDERED: CLR10 PO (10:41)
--- NOTE | 2017-08-08 11:02 | Discharge Instructions ---
Discharge Instructions Date of Service Aug 08, 2017. Admission Reason for Admission: Cystitis, Pneumonia Discharge Discharge Diagnosis / Problem: Metabolic encephalopthy Discharge Goals Goal(s): Improve function Activity Recommendations Activity Limitations: resume your previous activity . Instructions / Follow-Up Instructions / Follow-Up You were admitted for confusion. Likely multifactorial with history of hypoxia, possibly aspiration pneumonitis, opiate use, pain and deconditioning. Your abdominal pain is most likely from radicular pain from your back. No cause was found on CT scan of your back It is recommended undergoing an overnight sleep study as an outpatient to assess for obstructive sleep apnea. You are now being discharged to [facility] for ongoing rehabilitation. Current Hospital Diet Patient's current hospital diet: Regular Diet Discharge Diet Recommended Diet: Regular Diet Diet Texture: Mechanical Soft (ground) Pending Studies Studies pending at discharge: no Medical Emergencies . Who to Call and When: Medical Emergencies: If at any time you feel your situation is an emergency, please call 911 immediately. . Non-Emergent Contact Non-Emergency issues call your: Primary Care Provider . . "Provider Documentation" section prepared by Angel Mazariegos. . VTE Core Measure Inpt VTE Proph given/why not?: Unfractionated heparin SQ, SCD's
[2017-08-08 11:40] VITALS: PULSE 73; O2SAT 94
--- NOTE | 2017-08-08 17:15 | Discharge Summary ---
Discharge Summary Date of Service Aug 08, 2017. (Angel Mazariegos MD) Discharge Summary Admission Date: Aug 02, 2017 at 20:38 Discharge Date: Aug 08, 2017 Discharge Disposition: Rehab Principal Diagnosis: Metabolic encephalopathy Problems/Secondary Diagnoses: Aspiration pneumonitis Immunizations: Have You Had Influenza Vaccine: Yes History of Tetanus Vaccine?: Yes History of Pneumococcal: Yes History of Hepatitis B Vaccine: Unknown (Angel Mazariegos MD) Medication Reconciliation New Medications: Fentanyl (Fentanyl) 25 Mcg Tdsy 1 PATCH TOP [id number] for 7 Days, #3 Loratadine (Claritin) 10 Mg Tab 10 MG PO QAM for 7 Days, #7 TAB Metoprolol Succinate (Metoprolol Succinate ER) 50 Mg Tabcr 50 MG PO DAILY for 7 Days Ranitidine HCl (Ranitidine HCl) 150 Mg Tab 150 MG PO DAILY for 7 Days, #7 TAB Continued Medications: Docusate Sodium (Colace) 100 Mg Cap 100 MG PO DAILY, CAP Melatonin (Melatonin) 3 Mg Tab 3 MG PO HS Multivitamin (Multivitamin) Tab 1 TAB PO DAILY, TAB Oxybutynin Chloride (Ditropan Xl) 5 Mg Tab 5 MG PO DAILY, TAB Polyethylene Glycol 3350 (Miralax) 1 Pow Pow 17 GM PO DAILY PRN for Constipation, GM Discontinued Medications: Felodipine (Plendil Er) 5 Mg Tab 5 MG PO DAILY, TAB Metoprolol Succinate (Metoprolol Succinate ER) 25 Mg Tabcr 25 MG PO DAILY Discharge Exam No acute events overnight. Her main concern is for needing briefs. All other systems reviewed and otherwise negative Physical Exam: General Appearance: + obese Eyes: PERRL (right eye cornea slightly hazy compared to left but equal and reactive) ENT: pharynx normal Neck: supple, trachea midline Respiratory/Chest: lungs clear, normal breath sounds, no respiratory distress, no accessory muscle use Cardiovascular: regular rate, rhythm, no murmur, normal peripheral pulses Abdomen / GI: normal bowel sounds, soft, + tenderness (generalized but mostly in RUQ, no rebound or guarding, similar to previous examinations) Extremities: no pedal edema, + calf tenderness (bilaterally (US doppler negative for DVT)) Neurologic/Psychiatric: fur cutter II-XII nml as tested (no facial droop), no motor /sensory deficits (grossly normal), alert, oriented x 3 Skin: normal color, warm/dry, no rash (Angel Mazariegos MD) abdominal pain improving. Review of Systems: Constitutional: No fever Respiratory: No shortness of breath Cardiovascular: No chest pain Abdomen: No nausea, No vomiting Physical Exam: General Appearance: no apparent distress Respiratory/Chest: lungs clear, no respiratory distress Cardiovascular: regular rate, rhythm Abdomen / GI: normal bowel sounds, non tender, soft Neurologic/Psychiatric: alert (Brielle Dawkins M.D.) Hospital Course Mahogany is an 87 yo F with hypertension, bilateral knee osteoarthritis, and potentially dementia who presented with confusion and weakness over the last 3 weeks. History was primarily obtained from the patient's daughter and her caregiver as the patient is incredibly somnolent. Daughter reports over the last 3 weeks the patient has been intermittently confused, and has been overall declining. She reports she thought she had a urinary tract infection and she had foul-smelling urine. She also has had a significant cough and congestion, and was hypoxic upon arrival to the ER. The patient has been steadily declining over the last year and a half. She initially had a fall and went to [facility] for rehabilitation, and then to the [facility] to reside for a few months. She has gained about 40 pounds throughout this time. She has also been less able to ambulate. She is not currently receiving physical therapy. Family reports she is generally bedbound , but can walk 3-5 feet with a wheelchair to transferred. Her somnolent state was likely secondary to hypoxia from possible aspiration pneumonitis, opiate use, deconditioning and abdominal pain. She had initial antibiotics however urine culture was negative and CXR did not show any pneumonia therefore they were subsequently stopped. No intra-abdominal cause for her abdominal pain was found on CT and it is suspected her pain is radicular from her back. It is recommended she has a sleep study as outpatient to assess for obstructive sleep apnea. Her mental state improved with conservative measures and she is now medically stable for discharge for further rehabilitation at [facility]. Total Time Spent: Less than 30 minutes This includes examination of the patient, discharge planning, medication reconciliation, and communication with other providers. (Angel Mazariegos MD) Resident Physician Supervision Note: I independently interviewed and examined the patient and verified the almaraz history and physical, reviewed labs and image studies, discussed the case with the resident Dr. Mazariegos and agree with the findings and care plan. 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 Total Time Spent: Greater than 30 minutes (35) (Brielle Dawkins M.D.) Discharge Instructions Please refer to the electronic Patient Visit Report (Discharge Instructions) for additional information. (Angel Mazariegos MD) Follow-Up Follow up with [facility] (Angel Mazariegos MD) Additional Copies To [facility]
== END 2017-08-08 13:27 | DRG 177 ==
LOC: C.EDB 13:56 → C.2T 20:38 → ENRESERV 21:27 → C.MS2W 08-03 12:39 → CMPBEDREQ 08-03 13:28
PROVIDERS: ADMIT Hospitalist; ATTEND Family Medicine
DX: J69.0 Pneumonitis due to inhalation of food and vomit (principal); J96.01 Acute respiratory failure with hypoxia; G93.41 Metabolic encephalopathy; M54.14 Radiculopathy, thoracic region; R53.81 Other malaise; I10 Essential (primary) hypertension; K21.9 Gastro-esophageal reflux disease without esophagitis; M17.0 Bilateral primary osteoarthritis of knee; R32 Unspecified urinary incontinence; K59.00 Constipation, unspecified; R09.82 Postnasal drip; F03.90 Unspecified dementia, unspecified severity, without behavioral disturbance, psychotic disturbance, mood disturbance, and anxiety; E66.9 Obesity, unspecified; Z68.35 Body mass index [BMI] 35.0-35.9, adult; Z66 Do not resuscitate; Z74.01 Bed confinement status; Z96.642 Presence of left artificial hip joint; Z87.440 Personal history of urinary (tract) infections; Z75.1 Person awaiting admission to adequate facility elsewhere; Z79.891 Long term (current) use of opiate analgesic; Z79.899 Other long term (current) drug therapy

== ENCOUNTER → 2017-09-23 | Outpatient (CLI) | payer OTHER, BC ==
[~2017-09-23] MED LIST changes: -ACET-1311 PO; -ASPI-461 PO; -BISA10SU3 PR; -CITA20TA9 PO; +CLR10 PO; -DICL1GEL12 TOP; -FELO5TAB PO; -FEXO3TAB PO; +FNTTP25 TOP; -HYDR-4079 PO; -HYDR-5688 PO; -MOML PO; +MULT-506 PO; -SODIENE PR; -TPRSR/25 PO; +TPRSR50 PO; +ZNT150 PO
[2017-09-23 18:18] LABS: URINE APPEARANCE CLEAR (CLEAR); URINE BILIRUBIN NEG (NEG); URINE COLOR YELLOW; URINE NITRITE NEG (NEG); URINE PH 6.5 (4.5-7.5); URINE SPECIFIC GRAVITY 1.021 (1.000-1.030); UROBILINOGEN NEG (NEG)
[2017-09-23 18:20] LABS: MANUAL MICROSCOPIC REQUIRED? NO; REVIEW REQ? NO
== END | disposition home or self-care (01) ==
LOC: C.LABSPEC 09-21 13:23
PROVIDERS: ATTEND Nurse Practitioner Family
DX: R32 Unspecified urinary incontinence (principal); R82.90 Unspecified abnormal findings in urine